=== PATIENT | female | born 1980 | race Caucasian/White ===

== ENCOUNTER 2016-06-28 10:57 | Inpatient (IN) | payer OTHER ==
[~2016-06-28 10:57] MED LIST: Albuterol/Ipratropium 3.0-0.5 MG/3 ML Neb Soln NEB PRN; Lactated Ringers 1,000 ML IV SCH; Lidocaine 1%/Sod Bicarbonate in NS 8.4% 1 ML Syringe IV PRN; Midazolam 1 MG/ML 2 ML SDV ONE; Morphine PF 10 MG/10 ML SDV ONE; Propofol 200 MG/20 ML SDV ONE; Sodium Chloride 0.9% 10 ML ONE; Sodium Chloride 0.9% 10 ML Syringe FLUSH PRN; ceFAZolin 1 GM Vial ONE; fentaNYL 100 MCG/2 ML SDV ONE
--- NOTE | 2016-06-28 11:27 | PCM.PREANE ---
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 Respiratory: Reports: shortness of breath (pt is current smoker, asthma, received duoneb preop) Cardiovascular: Reports: no symptoms, blood pressure problem GI: Reports: no symptoms (Gerd, well controlled) - PHYSICAL ASSESSMENT HR: 108 O2 Sat by Pulse Oximetry: 97 RR: 16 BP: 160/89 Temp: 36.2 C Height: 69 cm Weight: 143.018 kg NPO Status Date: 06/27/16 NPO Status Time: 21:30 ASA Class: 2 Mental Status: alert & oriented x3 Thyro-Mental Finger Breadths: 3 Mouth Opening Finger Breadths: 3 ROM/Head Extension: full Respiratory Status: lungs clear to auscultation bilaterally Cardiovascular Status: regular rate & rhythm, normal S1, S2, no murmur, blood pressure WNL - ALLERGIES Allergies/Adverse Reactions: Allergies Allergy/AdvReac Type Severity Reaction Status Date / Time No Known Allergies Allergy Verified 06/27/16 15:11 - BLOOD Blood Available: No Product(s) Available: None - ANESTHESIA PLAN Preop Beta Darcy: No Anesthesia Type Planned: spinal - ACKNOWLEDGEMENTS Pt an appropriate candidate for the planned anesthesia: Yes Alternatives and risks of anesthesia discussed w pt/guardian: Yes Pt/Guardian understands and agree with anesthesia plan: Yes PreAnesthesia Questionnaire HEENT History: Reports: Impaired vision Other HEENT History: wears glasses Cardiovascular History: Reports: Hypertension Respiratory History: Reports: Asthma, Other (see below) Other Respiratory History: Walking pneumonia Gastrointestinal History: Reports: Chronic constipation, GERD, Hemorrhoids Genitourinary History: Reports: None 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: , 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 Musculoskeletal History: Reports: None Neurological History: Reports: None, Headaches, chronic, Vertigo Psychiatric History: Reports: None Endocrine/Metabolic History: Reports: None, Obesity/BMI 30+ Hematologic History: Reports: None Immunologic History: Reports: None Oncologic (Cancer) History: Reports: None Dermatologic History: Reports: None - Past Surgical History Head Surgeries/Procedures: Reports: None HEENT Surgical History: Reports: Adenoidectomy Cardiovascular Surgical History: Reports: None Respiratory Surgical History: Reports: None GI Surgical History: Reports: None Female Surgical History: Reports: D&C Endocrine Surgical History: Reports: None Neurological Surgical History: Reports: None Musculoskeletal Surgical History: Reports: None - SUBSTANCE USE Smoking Status *Q: Light Tobacco Smoker Tobacco Use Within Last Twelve Months: Cigarettes Second Hand Smoke Exposure: Yes Recreational Drug Use History: No - HOME MEDS Home Medications: Home Meds Hydrochlorothiazide 25 mg PO DAILY 06/17/16 [History] Omeprazole 1 tab PO DAILY 06/17/16 [History] Acetaminophen/oxyCODONE [Percocet 325-5 MG] 1 - 2 tab PO Q4H PRN #50 tablet [Rx] Cyclobenzaprine [Flexeril] 10 mg PO TID PRN #40 tablet 06/21/16 [Rx] Docusate Sodium [Colace] 100 mg PO BID cap 06/21/16 [Rx] Albuterol Sulfate [Proair Hfa] 1 - 2 puff INH Q4H PRN 06/27/16 [History] Fluticasone/Vilanterol [Breo Ellipta 200-25 Mcg INH] 1 puff INH DAILY 06/27/16 [ History] - CURRENT (IN HOUSE) MEDS Current Meds: Current Medications Albuterol/Ipratropium (Duoneb 3.0-0.5 Mg/3 Ml) 3 ml NEB ONETIME PRN PRN Reason: Shortness of Breath Bisacodyl (Dulcolax) 5 mg PO DAILY PRN PRN Reason: Constipation Cyclobenzaprine HCl (Flexeril) 10 mg PO TID PRN PRN Reason: Spasms Diphenhydramine HCl (Benadryl) 25 mg IVPUSH Q4H PRN PRN Reason: Itching Docusate Sodium (Colace) 100 mg PO BID [facility]ICK[facility] Enoxaparin Sodium (Lovenox) 40 mg SUBCUT DAILY [facility] Famotidine (Pepcid) 20 mg PO Q12H [facility] Lactated Ringer's (Ringers, Lactated) 1,000 mls @ 125 mls/hr IV ASDIRECTED [facility]ICK[facility] Cefazolin Sodium/Dextrose 2 gm (/ Premix) 50 mls @ 100 mls/hr IV Q8H [facility] Stop: 06/28/16 23:14 Cefazolin Sodium/Dextrose 1 gm (/ Premix) 50 mls @ 100 mls/hr IV Q8HR [facility]ICK[facility] Stop: 06/29/16 06:29 Lidocaine/Sodium Bicarbonate (Buffered Lidocaine 1% In Ns 8.4%) 0.25 ml IV ONETIME PRN PRN Reason: Prior to IV Start Magnesium Hydroxide (Milk Of Magnesia) 30 ml PO BID PRN PRN Reason: Constipation Morphine Sulfate (Morphine) 2 mg IVPUSH Q2H PRN PRN Reason: Pain Naloxone HCl (Narcan) 0.1 mg IVPUSH Q5M PRN PRN Reason: oversedation Stop: 06/29/16 12:31 Ondansetron HCl (Zofran) 4 mg IVPUSH Q6H PRN PRN Reason: Nausea/Vomiting Oxycodone/Acetaminophen (Percocet 325-5 Mg) 1 - 2 tab PO Q4H PRN PRN Reason: Pain Senna (Senna) 8.6 mg PO BID PRN PRN Reason: Constipation Sodium Chloride (Saline Flush) 10 ml FLUSH ASDIRECTED PRN PRN Reason: Keep Vein Open Sodium Chloride (Saline Flush) 10 ml FLUSH ASDIRECTED PRN PRN Reason: Keep Vein Open Discontinued Medications Cefazolin Sodium (Ancef) Confirm Administered Dose 2 gm .ROUTE .STK-MED ONE Stop: 06/28/16 10:00 Fentanyl (Sublimaze) Confirm Administered Dose 100 mcg .ROUTE .STK-MED ONE Stop: 06/28/16 10:01 Sodium Chloride (Normal Saline) Confirm Administered Dose 10 mls @ as directed .ROUTE .STK-MED ONE Stop: 06/28/16 10:01 Midazolam HCl (Versed 1 Mg/Ml) Confirm Administered Dose 2 mg .ROUTE .STK-MED ONE Stop: 06/28/16 10:01 Morphine Sulfate (Duramorph Pf) Confirm Administered Dose 10 mg .ROUTE .STK-MED ONE Stop: 06/28/16 10:01 Propofol (Diprivan 20 Ml) Confirm Administered Dose 400 mg .ROUTE .STK-MED ONE Stop: 06/28/16 10:00
[2016-06-28] MEDS ORDERED: fentaNYL 100 MCG/2 ML SDV IVPUSH PRN (11:45)
[2016-06-28] MEDS ORDERED: Scopolamine 1.5 MG Transdermal Patch TRDERM ONE (11:45)
[2016-06-28] MEDS ORDERED: diphenhydrAMINE 50 MG/ML SDV IVPUSH PRN ×2 (11:45→13:00)
[2016-06-28] MEDS ORDERED: Ondansetron 4 MG/2 ML SDV IVPUSH PRN ×2 (11:45→14:00)
[2016-06-28] MEDS ORDERED: Propofol 200 MG/20 ML SDV ONE ×8 (11:56→14:44)
[2016-06-28] MEDS ORDERED: Pneumococcal Polyvalent-23 Vaccine 0.5 ML SDV IM ONE (12:27)
[2016-06-28] MEDS ORDERED: fentaNYL 100 MCG/2 ML SDV ONE (12:29)
[2016-06-28] MEDS ORDERED: Morphine 2 MG/ML Syringe IVPUSH PRN (12:30)
[2016-06-28] MEDS ORDERED: Naloxone 0.4 MG/ML SDV IVPUSH PRN (12:30)
[2016-06-28] MEDS ORDERED: Midazolam 1 MG/ML 2 ML SDV ONE (12:40)
[2016-06-28] MEDS ORDERED: Pneumococcal 13-Valent Conjugate Vaccine 0.5 ML Syringe IM ONE (12:45)
[2016-06-28] MEDS ORDERED: ceFAZolin 1 GM Vial ONE (12:50)
[2016-06-28] MEDS ORDERED: HYDROmorphone 0.5 MG/0.5 ML Syringe IVPUSH PRN (12:50)
[2016-06-28] MEDS ORDERED: Ketamine 500 mg/10 ML MDV ONE (13:02)
[2016-06-28] MEDS ORDERED: Albuterol 0.021% 0.63 MG/3 ML Neb Soln ONE (13:04)
[2016-06-28] MEDS: Bupivacaine 0.25% 30 ML SDV ONE ×2 (13:21→14:41)
[2016-06-28] MEDS ORDERED: Bupivacaine 0.25% 30 ML SDV ONE (14:16)
[2016-06-28] MEDS ORDERED: Ondansetron 4 MG/2 ML SDV ONE (14:39)
[2016-06-28] MEDS ORDERED: Lactated Ringers 1,000 ML ONE ×2 (14:55→14:56)
--- NOTE | 2016-06-28 15:14 | PCM.POSTAN ---
POST ANESTHESIA ASSESSMENT - MENTAL STATUS Mental Status: alert, oriented - VITAL SIGNS Pulse Rate: 105 SaO2: 96 Resp Rate: 19 Blood Pressure: 96/58 Temperature: 36.4 C - RESPIRATORY Respiratory Status: respiratory rate WNL, airway patent, O2 saturation stable - CARDIOVASCULAR CV Status: pulse rate WNL, blood pressure stable - GASTROINTESTINAL GI Status: no symptoms - PAIN Pain Score: 0 - POST OP HYDRATION Hydration Status: adequate & stable
[2016-06-28] MEDS ORDERED: Albuterol/Ipratropium 3.0-0.5 MG/3 ML Neb Soln NEB PRN (15:21)
[2016-06-28] MEDS ORDERED: Albuterol 6.7 GM Inhaler INH PRN (15:22)
[2016-06-28] MEDS: Cyclobenzaprine 10 MG Tab PO PRN (17:31)
[2016-06-28] MEDS: Acetaminophen/oxyCODONE 325-5 MG Tab PO PRN ×2 (18:04→22:04)
[2016-06-28] MEDS ORDERED: ceFAZolin 2 GM in Premix Bag 1 BAG IV SCH (19:30)
--- NOTE | 2016-06-28 19:55 | PCM.CONS ---
H&P History of Present Illness - General Date of Service: 06/28/16 Admit Problem/Dx: Admission Diagnosis/Problem Admission Diagnosis/Problem Fracture of tibia Source of Information: Patient, Old records, Provider, RN notes reviewed History Limitations: Reports: Physical impairment - History of Present Illness Initial Comments - Free Text/Narative: This is a 35-year-old, white female, with past medical history of HTN, Asthma, GERD, Nicotine Dependence, and Morbid Obesity who underwent recent ORIF on Right Medical and/or Lateral Tibial Plateau Fracture due to Displaced Bicondylar Fracture of Right Tibia post operative day zero. Patient is doing well hemodynamically. Currently, she is in extreme pain (crying). She denies any other acute issues. Medicine was consulted for postoperative care. - Related Data Allergies/Adverse Reactions: Allergies Allergy/AdvReac Type Severity Reaction Status Date / Time No Known Allergies Allergy Verified 06/27/16 15:11 Home Medications: Home Meds Hydrochlorothiazide 25 mg PO DAILY 06/17/16 [History] Omeprazole 1 tab PO DAILY 06/17/16 [History] Acetaminophen/oxyCODONE [Percocet 325-5 MG] 1 - 2 tab PO Q4H PRN #50 tablet [Rx] Cyclobenzaprine [Flexeril] 10 mg PO TID PRN #40 tablet 06/21/16 [Rx] Docusate Sodium [Colace] 100 mg PO BID cap 06/21/16 [Rx] Albuterol Sulfate [Proair Hfa] 1 - 2 puff INH Q4H PRN 06/27/16 [History] Fluticasone/Vilanterol [Breo Ellipta 200-25 Mcg INH] 1 puff INH DAILY 06/27/16 [ History] Past Medical History HEENT History: Reports: Impaired vision Other HEENT History: wears glasses Cardiovascular History: Reports: Hypertension Respiratory History: Reports: Asthma, Other (see below) Other Respiratory History: Walking pneumonia Gastrointestinal History: Reports: Chronic constipation, GERD, Hemorrhoids Genitourinary History: Reports: None 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: , 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 Musculoskeletal History: Reports: None Neurological History: Reports: None, Headaches, chronic, Vertigo Psychiatric History: Reports: None Endocrine/Metabolic History: Reports: None, Obesity/BMI 30+ Hematologic History: Reports: None Immunologic History: Reports: None Oncologic (Cancer) History: Reports: None Dermatologic History: Reports: None - Past Surgical History Head Surgeries/Procedures: Reports: None HEENT Surgical History: Reports: Adenoidectomy Cardiovascular Surgical History: Reports: None Respiratory Surgical History: Reports: None GI Surgical History: Reports: None Female Surgical History: Reports: D&C Endocrine Surgical History: Reports: None Neurological Surgical History: Reports: None Musculoskeletal Surgical History: Reports: None Social & Family History - Family History Family Medical History: Noncontributory - Tobacco Use Smoking Status *Q: Former Smoker Years of Tobacco use: 12 Packs/Tins Daily: 2 Used Tobacco, but Quit: Yes Month Tobacco Last Used: 2015 Second Hand Smoke Exposure: Yes - Caffeine Use Caffeine Use: Reports: Coffee, Soda - Recreational Drug Use Recreational Drug Use: No Drug Use in Last 12 Months: No H&P Review of Systems - Review of Systems: Review Of Systems: See Below General: Denies: fever, chills, malaise, weakness HEENT: Reports: no symptoms Pulmonary: Denies: shortness of breath Cardiovascular: Denies: chest pain, palpitations, dyspnea on exertion Gastrointestinal: Denies: Abdominal pain, Constipation, Diarrhea, Nausea, Vomiting Genitourinary: Reports: no symptoms Musculoskeletal: Reports: other (knee pain) Skin: Reports: no symptoms. Denies: bruising, pruritis, rash Psychiatric: Denies: depression, anxiety, hallucinations Neurological: Reports: difficulty walking, gait disturbance. Denies: confusion Hematologic/Lymphatic: Reports: no symptoms Immunologic: Reports: no symptoms Exam - Exam Exam: See Below - Vital Signs Vital Signs: Last Vital Signs Temp 36.6 C 06/28/16 18:00 Pulse 89 06/28/16 18:00 Resp 22 H 06/28/16 18:00 BP 133/82 06/28/16 18:00 Pulse Ox 99 06/28/16 18:00 Weight: 143.018 kg - Exam General: alert, oriented, cooperative, moderate distress, other (Morbidly Obese) HEENT: Conjunctiva clear, EACs clear, EOMI, Hearing intact, Mucosa moist & pink , Nares patent, Normal nasal septum, Posterior pharynx clear, Pupils equal, Pupils reactive, TMs clear Neck: supple, trachea midline, 2+ carotid pulse wo bruit, full range of motion, other (short and thick) Lungs: Clear to auscultation, Normal respiratory effort Cardiovascular: regular rate, regular rhythm Abdomen: normal bowel sounds, soft, organomegaly (Female) Exam: Other (indwelling roy catheter) Rectal (Female) Exam: Deferred Back Exam: normal inspection, decreased range of motion Extremities: normal inspection, normal pulses, other (right knee with brace/ immobilizer). No: clubbing, cyanosis, calf tenderness, edema Peripheral Pulses: 2+: dorsalis pedis (L), dorsalis pedis (R) Skin: warm, dry, intact Neuro Extensive - Mental Status: oriented x3, normal cognition, memory intact Neuro Extensive - Motor, Sensory, Reflexes: CN II-XII intact (limited by), abnormal gait Psychiatric: alert, normal affect, normal mood Consult PN Assessment/Plan POD#: 0 Procedures: Procedures APPLY BONE FIXATION DEVICE (06/20/16) CT LOWER EXTREMITY W/O DYE (06/20/16) EMERGENCY DEPT VISIT (06/17/16) FLUOROSCOPE EXAMINATION (06/20/16) MEASURE BLOOD OXYGEN LEVEL (06/20/16) MR-STAPH DNA AMP PROBE (06/19/16) PT EVAL LOW COMPLEX 20 MIN (06/20/16) THER/PROPH/DIAG INJ SC/IM (06/17/16) X-RAY EXAM KNEE 4 OR MORE (06/17/16) Problem List Initiated/Reviewed/Updated: Yes Plan: Assessment: Acute: Post-Operative Care State - Stable - Continue to monitor for hemodynamic instability S/p ORIF on Right Medical and/or Lateral Tibial Plateau Fracture - Stable - DVT and Pain Management as per primary team Hx/o Displaced Bicondylar Fracture of Right Tibia - Pain Management as per primary team Post Operative Pain - She is in extreme pain, crying - Defer to primary team Chronic: HTN Asthma GERD Obesity with BMI 46.6 Plan: She is clinically stable Routine AM labs Continue home meds PT/OT consult IS q2 awake Thank you for the opportunity to participate in the management of this patient. Requesting Provider: Dr. Nathan Date Consult Requested: 06/28/16 Reason for Consult: Post-Operative Care Patient History Reviewed: Yes Admission H&P Reviewed: Yes Consult Result/Summary: Stable
[2016-06-28] MEDS ORDERED: HYDROmorphone 0.5 MG/0.5 ML Syringe IVPUSH ONE (19:59)
[2016-06-28] MEDS ORDERED: fentaNYL 100 MCG/2 ML SDV IVPUSH ONE (20:00)
[2016-06-28] MEDS: Docusate Sodium 100 MG Cap PO SCH (20:11)
[2016-06-28] MEDS ORDERED: Temazepam 30 MG Cap PO PRN (20:38)
[2016-06-28] MEDS ORDERED: Docusate Sodium 100 MG Cap PO SCH (21:00)
[2016-06-28] MEDS ORDERED: Sennosides 8.6 MG Tab PO PRN (21:00)
[2016-06-28] MEDS ORDERED: Magnesium Hydroxide 400 MG/5 ML Susp 30 ML Cup PO PRN (21:00)
[2016-06-28] MEDS ORDERED: Famotidine 20 MG Tab PO SCH (21:00)
[2016-06-28] MEDS: ceFAZolin 1 GM in Premix Bag 1 BAG IV SCH (21:19)
[2016-06-29] MEDS: oxyCODONE 5 MG Tab PO PRN ×2 (00:08→08:23)
[2016-06-29] MEDS: ceFAZolin 1 GM in Premix Bag 1 BAG IV SCH ×3 (00:52→12:08)
[2016-06-29] MEDS: Acetaminophen/oxyCODONE 325-5 MG Tab PO PRN ×2 (02:04→06:09)
[2016-06-29] MEDS: Cyclobenzaprine 10 MG Tab PO PRN ×2 (02:57→08:25)
[2016-06-29] MEDS: ceFAZolin 2 GM in Premix Bag 1 BAG IV SCH ×2 (04:38→12:08)
[2016-06-29] MEDS ORDERED: fentaNYL 100 MCG/2 ML SDV IVPUSH ONE (04:48)
[2016-06-29] MEDS ORDERED: HYDROmorphone 0.5 MG/0.5 ML Syringe IVPUSH ONE (04:51)
--- NOTE | 2016-06-29 08:04 | PCM.CONSN ---
- General Info Date of Service: 06/29/16 Admission Dx/Problem (Free Text): Admission Diagnosis/Problem Admission Diagnosis/Problem Fracture of tibia Subjective Update: Follow up Functional Status: Reports: tolerating diet, ambulating, urinating. Denies: pain controlled, new symptoms - Review of Systems General: Denies: fever, weakness, fatigue, malaise, chills HEENT: Reports: no symptoms Pulmonary: Denies: shortness of breath, pleuritic chest pain, cough, wheezing Cardiovascular: Denies: chest pain Gastrointestinal: Denies: Abdominal pain, Nausea, Vomiting Genitourinary: Denies: no symptoms Musculoskeletal: Reports: no symptoms Skin: Reports: no symptoms Neurological: Reports: gait disturbance. Denies: confusion Psychiatric: Denies: depression, anxiety, hallucinations Systems Review Comment:: No acute issues. Her pain is much more controlled now. She has no new complaints. - Patient Data Vitals - most recent: Last Vital Signs Temp 36.9 C 06/29/16 05:12 Pulse 102 H 06/29/16 05:13 Resp 20 06/29/16 05:12 BP 146/82 H 06/29/16 05:12 Pulse Ox 92 L 06/29/16 05:13 Weight - most recent: 149.64 kg I&O - last 24 hours: Intake & Output 06/28/16 06/29/16 06/29/16 22:59 06:59 14:59 Intake Total 250 900 Output Total 420 1050 Balance -170 -150 Lab Results last 24 hrs: Laboratory Results - last 24 hr 06/29/16 06/29/16 Range/Units 05:45 05:45 WBC 8.62 (3.98-10.04) K/mm3 RBC 4.30 (3.98-5.22) M/mm3 Hgb 8.5 L (11.2-15.7) gm/L Hct 29.4 L (34.1-44.9) % MCV 68.4 L (79.4-94.8) fl MCH 19.8 L (25.6-32.2) pg MCHC 28.9 L (32.2-35.5) g/dl RDW Std Deviation 47.1 H (36.4-46.3) fL Plt Count 336 (182-369) K/mm3 MPV 9.7 (9.4-12.3) fl Sodium 138 (136-145) mEq/L Potassium 3.7 (3.5-5.1) mEq/L Chloride 101 (98-107) mEq/L Carbon Dioxide 28 (21-32) mEq/L Anion Gap 12.7 (5-15) BUN 7 (7-18) mg/dL Creatinine 0.8 (0.55-1.02) mg/dL Est Cr Clr Drug Dosing 104.53 mL/min Estimated GFR (MDRD) > 60 (>60) mL/min BUN/Creatinine Ratio 8.8 L (14-18) Glucose 122 H (74-106) mg/dL Calcium 8.3 L (8.5-10.1) mg/dL Med Orders - Current: Current Medications Albuterol (Proventil Hfa) 0 gm INH Q4H PRN PRN Reason: Shortness of Breath Albuterol/Ipratropium (Duoneb 3.0-0.5 Mg/3 Ml) 3 ml NEB Q4H PRN PRN Reason: Shortness of Breath Bisacodyl (Dulcolax) 5 mg PO DAILY PRN PRN Reason: Constipation Cyclobenzaprine HCl (Flexeril) 10 mg PO TID PRN PRN Reason: Spasms Last Admin: 06/29/16 02:57 Dose: 10 mg Docusate Sodium (Colace) 100 mg PO BID [facility] Last Admin: 06/28/16 20:11 Dose: 100 mg Enoxaparin Sodium (Lovenox) 30 mg SUBCUT Q12HR [facility] Hydrochlorothiazide (Hydrochlorothiazide) 25 mg PO DAILY [facility] Cefazolin Sodium/Dextrose 2 gm (/ Premix) 50 mls @ 100 mls/hr IV Q8H [facility] Stop: 06/29/16 12:59 Last Admin: 06/29/16 04:38 Dose: 100 mls/hr Cefazolin Sodium/Dextrose 1 gm (/ Premix) 50 mls @ 100 mls/hr IV Q8H [facility] Stop: 06/29/16 13:29 Last Admin: 06/29/16 05:26 Dose: 100 mls/hr Magnesium Hydroxide (Milk Of Magnesia) 30 ml PO BID PRN PRN Reason: Constipation Morphine Sulfate (Morphine) 2 mg IVPUSH Q2H PRN PRN Reason: Pain Naloxone HCl (Narcan) 0.1 mg IVPUSH Q5M PRN PRN Reason: oversedation Stop: 06/29/16 12:31 Ondansetron HCl (Zofran) 4 mg IVPUSH Q6H PRN PRN Reason: Nausea/Vomiting Oxycodone HCl (Oxycodone) 5 mg PO Q6H PRN PRN Reason: Pain Last Admin: 06/29/16 00:08 Dose: 5 mg Oxycodone/Acetaminophen (Percocet 325-5 Mg) 1 - 2 tab PO Q4H PRN PRN Reason: Pain Last Admin: 06/29/16 06:09 Dose: 2 tab Pantoprazole Sodium (Protonix) 40 mg PO DAILY RICKY Breo Ellipta ( Fluticasone/Vilanterol 100mcg/25 Mcg) Inhaler 0 each INH DAILY RICKY Senna (Senna) 8.6 mg PO BID PRN PRN Reason: Constipation Sodium Chloride (Saline Flush) 10 ml FLUSH ASDIRECTED PRN PRN Reason: Keep Vein Open Temazepam (Restoril) 30 mg PO BEDTIME PRN PRN Reason: Insomnia Discontinued Medications Albuterol (Proventil Neb Soln) Confirm Administered Dose 0.63 mg .ROUTE .STK- MED ONE Stop: 06/28/16 13:05 Last Admin: 06/28/16 17:13 Dose: Not Given Albuterol/Ipratropium (Duoneb 3.0-0.5 Mg/3 Ml) 3 ml NEB ONETIME PRN PRN Reason: Shortness of Breath Last Admin: 06/28/16 11:24 Dose: 3 ml Bupivacaine HCl (Marcaine 0.25%) Confirm Administered Dose 30 ml .ROUTE .STK- MED ONE Stop: 06/28/16 11:37 Last Admin: 06/28/16 14:41 Dose: 28 ml Bupivacaine HCl (Marcaine 0.25%) Confirm Administered Dose 30 ml .ROUTE .STK- MED ONE Stop: 06/28/16 14:17 Cefazolin Sodium (Ancef) Confirm Administered Dose 2 gm .ROUTE .STK-MED ONE Stop: 06/28/16 10:00 Cefazolin Sodium (Ancef) Confirm Administered Dose 1 gm .ROUTE .STK-MED ONE Stop: 06/28/16 12:51 Diphenhydramine HCl (Benadryl) 25 mg IVPUSH Q4H PRN PRN Reason: Itching Diphenhydramine HCl (Benadryl) 25 mg IVPUSH Q6H PRN PRN Reason: itching Stop: 06/28/16 20:00 Last Admin: 06/28/16 15:37 Dose: 25 mg Docusate Sodium (Colace) 100 mg PO BID [facility] Enoxaparin Sodium (Lovenox) 40 mg SUBCUT DAILY [facility] Famotidine (Pepcid) 20 mg PO Q12H [facility] Fentanyl (Sublimaze) Confirm Administered Dose 100 mcg .ROUTE .STK-MED ONE Stop: 06/28/16 10:01 Fentanyl (Sublimaze) 50 mcg IVPUSH Q5M PRN PRN Reason: pain Stop: 06/28/16 23:00 Fentanyl (Sublimaze) Confirm Administered Dose 100 mcg .ROUTE .STK-MED ONE Stop: 06/28/16 12:30 Fentanyl (Sublimaze) 100 mcg IVPUSH ONETIME ONE Stop: 06/28/16 20:01 Last Admin: 06/28/16 20:11 Dose: 100 mcg Fentanyl (Sublimaze) 100 mcg IVPUSH ONETIME ONE Stop: 06/29/16 04:49 Last Admin: 06/29/16 04:56 Dose: 100 mcg Hydromorphone HCl (Dilaudid) 0.5 mg IVPUSH Q15M PRN PRN Reason: Pain (severe 7-10) Stop: 06/28/16 13:06 Hydromorphone HCl (Dilaudid) 0.5 mg IVPUSH ONETIME ONE Stop: 06/28/16 20:00 Last Admin: 06/28/16 20:41 Dose: 0.5 mg Hydromorphone HCl (Dilaudid) 0.5 mg IVPUSH Q1H ONE Stop: 06/29/16 04:52 Last Admin: 06/29/16 05:26 Dose: 0.5 mg Lactated Ringer's (Ringers, Lactated) 1,000 mls @ 125 mls/hr IV ASDIRECTED [facility] Last Admin: 06/28/16 11:25 Dose: 125 mls/hr Cefazolin Sodium/Dextrose 2 gm (/ Premix) 50 mls @ 100 mls/hr IV Q8H [facility] Stop: 06/29/16 11:59 Last Admin: 06/28/16 20:42 Dose: 100 mls/hr Cefazolin Sodium/Dextrose 1 gm (/ Premix) 50 mls @ 100 mls/hr IV Q8HR [facility] Stop: 06/29/16 06:29 Last Admin: 06/29/16 00:52 Dose: Not Given Sodium Chloride (Normal Saline) Confirm Administered Dose 10 mls @ as directed .ROUTE .STK-MED ONE Stop: 06/28/16 10:01 Lactated Ringer's (Ringers, Lactated) Confirm Administered Dose 1,000 mls @ as directed .ROUTE .STK-MED ONE Stop: 06/28/16 14:56 Lactated Ringer's (Ringers, Lactated) Confirm Administered Dose 1,000 mls @ as directed .ROUTE .STK-MED ONE Stop: 06/28/16 14:57 Ketamine HCl (Ketalar) Confirm Administered Dose 500 mg .ROUTE .STK-MED ONE Stop: 06/28/16 13:03 Lidocaine/Sodium Bicarbonate (Buffered Lidocaine 1% In Ns 8.4%) 0.25 ml IV ONETIME PRN PRN Reason: Prior to IV Start Last Admin: 06/28/16 11:24 Dose: 0.25 ml Midazolam HCl (Versed 1 Mg/Ml) Confirm Administered Dose 2 mg .ROUTE .STK-MED ONE Stop: 06/28/16 10:01 Midazolam HCl (Versed 1 Mg/Ml) Confirm Administered Dose 2 mg .ROUTE .STK-MED ONE Stop: 06/28/16 12:41 Morphine Sulfate (Duramorph Pf) Confirm Administered Dose 10 mg .ROUTE .STK-MED ONE Stop: 06/28/16 10:01 Ondansetron HCl (Zofran) 4 mg IVPUSH ONETIME PRN PRN Reason: Nausea/Vomiting Stop: 06/28/16 23:00 Ondansetron HCl (Zofran) Confirm Administered Dose 4 mg .ROUTE .STK-MED ONE Stop: 06/28/16 14:40 Pneumococcal 13-Valent Conj Vacc (Prevnar 13) 0.5 ml IM .ONCE ONE Stop: 06/28/16 12:46 Pneumococcal Polyvalent Vaccine (Pneumovax 23) 0.5 ml IM .ONCE ONE Stop: 06/28/16 12:28 Propofol (Diprivan 20 Ml) Confirm Administered Dose 400 mg .ROUTE .STK-MED ONE Stop: 06/28/16 10:00 Propofol (Diprivan 20 Ml) Confirm Administered Dose 200 mg .ROUTE .STK-MED ONE Stop: 06/28/16 11:57 Propofol (Diprivan 20 Ml) Confirm Administered Dose 200 mg .ROUTE .STK-MED ONE Stop: 06/28/16 11:57 Propofol (Diprivan 20 Ml) Confirm Administered Dose 200 mg .ROUTE .STK-MED ONE Stop: 06/28/16 13:02 Propofol (Diprivan 20 Ml) Confirm Administered Dose 200 mg .ROUTE .STK-MED ONE Stop: 06/28/16 13:02 Propofol (Diprivan 20 Ml) Confirm Administered Dose 200 mg .ROUTE .STK-MED ONE Stop: 06/28/16 13:02 Propofol (Diprivan 20 Ml) Confirm Administered Dose 200 mg .ROUTE .STK-MED ONE Stop: 06/28/16 14:03 Propofol (Diprivan 20 Ml) Confirm Administered Dose 200 mg .ROUTE .STK-MED ONE Stop: 06/28/16 14:03 Propofol (Diprivan 20 Ml) Confirm Administered Dose 200 mg .ROUTE .STK-MED ONE Stop: 06/28/16 14:45 Scopolamine (Transderm-Scop) 1.5 mg TRDERM ONETIME ONE Stop: 06/28/16 11:46 Last Admin: 06/28/16 11:53 Dose: 1.5 mg Sodium Chloride (Saline Flush) 10 ml FLUSH ASDIRECTED PRN PRN Reason: Keep Vein Open - Exam General: alert, oriented, cooperative, no acute distress, other (Morbidly Obese) HEENT: Pupils equal, Pupils reactive, EOMI, Mucous membr. moist/pink Neck: supple, trachea midline, no JVD, no thyromegaly, +2 carotid pulse wo bruit , other (short and thick) Lungs: Clear to auscultation, Normal respiratory effort Cardiovascular: regular rate, regular rhythm Abdomen: bowel sounds present, soft, no tenderness, no distension (Female) Exam: Deferred Back Exam: normal inspection, decreased range of motion Extremities: no edema, normal pulses, no tenderness/swelling, no clubbing, no cyanosis, no calf tenderness Peripheral Pulses: 3+: dorsalis pedis (L), dorsalis pedis (R) Skin: warm, dry, intact Wound/Incisions: healing well, dressing dry and intact, no drainage Neurological: no new focal deficit Psy/Mental Status: alert, normal affect, normal mood Consult PN Assessment/Plan POD#: 1 Procedures: Procedures APPLY BONE FIXATION DEVICE (06/20/16) CHEST X-RAY 2VW FRONTAL&LATL (06/26/16) COMPLETE CBC AUTOMATED (06/26/16) COMPREHEN METABOLIC PANEL (06/26/16) CT LOWER EXTREMITY W/O DYE (06/20/16) EMERGENCY DEPT VISIT (06/17/16) FLUOROSCOPE EXAMINATION (06/20/16) MEASURE BLOOD OXYGEN LEVEL (06/20/16) MR-STAPH DNA AMP PROBE (06/19/16) PT EVAL LOW COMPLEX 20 MIN (06/20/16) ROUTINE VENIPUNCTURE (06/26/16) THER/PROPH/DIAG INJ SC/IM (06/17/16) X-RAY EXAM KNEE 4 OR MORE (06/17/16) Problem List Initiated/Reviewed/Updated: Yes My Orders last 24 hours: My Active Orders 06/28/16 20:38 Temazepam [Restoril] 30 mg PO BEDTIME PRN Plan: Assessment: Acute: Post-Operative Care State - Stable - Continue to monitor for hemodynamic instability S/p ORIF on Right Medical and/or Lateral Tibial Plateau Fracture - Stable - DVT and Pain Management as per primary team Hx/o Displaced Bicondylar Fracture of Right Tibia - Pain Management as per primary team S/p Post Operative Pain - Pain is now controlled - Defer to primary team Chronic: HTN Asthma GERD Obesity with BMI 46.6 Plan: She remains clinically stable Routine AM labs Continue PT/OT IS q2 awake We have no additional recommendations as this time but to continue current treatment
[2016-06-29] MEDS: Docusate Sodium 100 MG Cap PO SCH (08:25)
[2016-06-29] MEDS ORDERED: Hydrochlorothiazide 25 MG Tab PO SCH (09:00)
[2016-06-29] MEDS ORDERED: Bisacodyl 5 MG Tab PO PRN (09:00)
[2016-06-29] MEDS ORDERED: Enoxaparin 30 MG/0.3 ML Syringe SUBCUT SCH (09:00)
[2016-06-29] MEDS ORDERED: Enoxaparin 40 MG/0.4 ML Syringe SUBCUT SCH (09:00)
[2016-06-29] MEDS ORDERED: Pantoprazole 40 MG Tab.CR PO SCH (09:00)
[2016-06-29] MEDS ORDERED: BREO ELLIPTA INH SCH (09:00)
--- NOTE | 2016-06-29 10:03 | PCM.SURGPN ---
- General Info Date of Service: 06/29/16 POD#: 1 Functional Status: Reports: tolerating diet, ambulating - Review of Systems Musculoskeletal: Reports: other (The pt was able to ambulate a short distance in her room with P.T. Her pain is not controlled.) - Patient Data Vitals - most recent: Last Vital Signs Temp 97.0 F 06/29/16 09:47 Pulse 92 06/29/16 09:47 Resp 16 06/29/16 09:47 BP 148/74 H 06/29/16 09:47 Pulse Ox 91 L 06/29/16 09:47 Weight - most recent: 329 lb 14.4 oz I&O - last 24 hours: Intake & Output 06/28/16 06/29/16 06/29/16 22:59 06:59 14:59 Intake Total 250 900 Output Total 420 1050 Balance -170 -150 Lab Results last 24 hrs: Laboratory Results - last 24 hr 06/29/16 06/29/16 Range/Units 05:45 05:45 WBC 8.62 (3.98-10.04) K/mm3 RBC 4.30 (3.98-5.22) M/mm3 Hgb 8.5 L (11.2-15.7) gm/L Hct 29.4 L (34.1-44.9) % MCV 68.4 L (79.4-94.8) fl MCH 19.8 L (25.6-32.2) pg MCHC 28.9 L (32.2-35.5) g/dl RDW Std Deviation 47.1 H (36.4-46.3) fL Plt Count 336 (182-369) K/mm3 MPV 9.7 (9.4-12.3) fl Sodium 138 (136-145) mEq/L Potassium 3.7 (3.5-5.1) mEq/L Chloride 101 (98-107) mEq/L Carbon Dioxide 28 (21-32) mEq/L Anion Gap 12.7 (5-15) BUN 7 (7-18) mg/dL Creatinine 0.8 (0.55-1.02) mg/dL Est Cr Clr Drug Dosing 104.53 mL/min Estimated GFR (MDRD) > 60 (>60) mL/min BUN/Creatinine Ratio 8.8 L (14-18) Glucose 122 H (74-106) mg/dL Calcium 8.3 L (8.5-10.1) mg/dL Med Orders - Current: Current Medications Albuterol (Proventil Hfa) 0 gm INH Q4H PRN PRN Reason: Shortness of Breath Albuterol/Ipratropium (Duoneb 3.0-0.5 Mg/3 Ml) 3 ml NEB Q4H PRN PRN Reason: Shortness of Breath Bisacodyl (Dulcolax) 5 mg PO DAILY PRN PRN Reason: Constipation Cyclobenzaprine HCl (Flexeril) 10 mg PO TID PRN PRN Reason: Spasms Last Admin: 06/29/16 08:25 Dose: 10 mg Docusate Sodium (Colace) 100 mg PO BID [facility] Last Admin: 06/29/16 08:25 Dose: 100 mg Enoxaparin Sodium (Lovenox) 30 mg SUBCUT Q12HR [facility] Hydrochlorothiazide (Hydrochlorothiazide) 25 mg PO DAILY [facility] Last Admin: 06/29/16 08:25 Dose: 25 mg Hydromorphone HCl (Dilaudid) 2 mg PO Q4H PRN PRN Reason: Pain Cefazolin Sodium/Dextrose 2 gm (/ Premix) 50 mls @ 100 mls/hr IV Q8H [facility] Stop: 06/29/16 12:59 Last Admin: 06/29/16 04:38 Dose: 100 mls/hr Cefazolin Sodium/Dextrose 1 gm (/ Premix) 50 mls @ 100 mls/hr IV Q8H [facility] Stop: 06/29/16 13:29 Last Admin: 06/29/16 05:26 Dose: 100 mls/hr Magnesium Hydroxide (Milk Of Magnesia) 30 ml PO BID PRN PRN Reason: Constipation Naloxone HCl (Narcan) 0.1 mg IVPUSH Q5M PRN PRN Reason: oversedation Stop: 06/29/16 12:31 Ondansetron HCl (Zofran) 4 mg IVPUSH Q6H PRN PRN Reason: Nausea/Vomiting Pantoprazole Sodium (Protonix) 40 mg PO DAILY [facility] Last Admin: 06/29/16 08:25 Dose: 40 mg Breo Ellipta ( Fluticasone/Vilanterol 100mcg/25 Mcg) Inhaler 0 each INH DAILY [facility] Last Admin: 06/29/16 08:34 Dose: 1 each Senna (Senna) 8.6 mg PO BID PRN PRN Reason: Constipation Sodium Chloride (Saline Flush) 10 ml FLUSH ASDIRECTED PRN PRN Reason: Keep Vein Open Temazepam (Restoril) 30 mg PO BEDTIME PRN PRN Reason: Insomnia Discontinued Medications Albuterol (Proventil Neb Soln) Confirm Administered Dose 0.63 mg .ROUTE .STK- MED ONE Stop: 06/28/16 13:05 Last Admin: 06/28/16 17:13 Dose: Not Given Albuterol/Ipratropium (Duoneb 3.0-0.5 Mg/3 Ml) 3 ml NEB ONETIME PRN PRN Reason: Shortness of Breath Last Admin: 06/28/16 11:24 Dose: 3 ml Bupivacaine HCl (Marcaine 0.25%) Confirm Administered Dose 30 ml .ROUTE .STK- MED ONE Stop: 06/28/16 11:37 Last Admin: 06/28/16 14:41 Dose: 28 ml Bupivacaine HCl (Marcaine 0.25%) Confirm Administered Dose 30 ml .ROUTE .STK- MED ONE Stop: 06/28/16 14:17 Cefazolin Sodium (Ancef) Confirm Administered Dose 2 gm .ROUTE .STK-MED ONE Stop: 06/28/16 10:00 Cefazolin Sodium (Ancef) Confirm Administered Dose 1 gm .ROUTE .STK-MED ONE Stop: 06/28/16 12:51 Diphenhydramine HCl (Benadryl) 25 mg IVPUSH Q4H PRN PRN Reason: Itching Diphenhydramine HCl (Benadryl) 25 mg IVPUSH Q6H PRN PRN Reason: itching Stop: 06/28/16 20:00 Last Admin: 06/28/16 15:37 Dose: 25 mg Docusate Sodium (Colace) 100 mg PO BID [facility] Enoxaparin Sodium (Lovenox) 40 mg SUBCUT DAILY [facility] Famotidine (Pepcid) 20 mg PO Q12H [facility] Fentanyl (Sublimaze) Confirm Administered Dose 100 mcg .ROUTE .STK-MED ONE Stop: 06/28/16 10:01 Fentanyl (Sublimaze) 50 mcg IVPUSH Q5M PRN PRN Reason: pain Stop: 06/28/16 23:00 Fentanyl (Sublimaze) Confirm Administered Dose 100 mcg .ROUTE .STK-MED ONE Stop: 06/28/16 12:30 Fentanyl (Sublimaze) 100 mcg IVPUSH ONETIME ONE Stop: 06/28/16 20:01 Last Admin: 06/28/16 20:11 Dose: 100 mcg Fentanyl (Sublimaze) 100 mcg IVPUSH ONETIME ONE Stop: 06/29/16 04:49 Last Admin: 06/29/16 04:56 Dose: 100 mcg Hydromorphone HCl (Dilaudid) 0.5 mg IVPUSH Q15M PRN PRN Reason: Pain (severe 7-10) Stop: 06/28/16 13:06 Hydromorphone HCl (Dilaudid) 0.5 mg IVPUSH ONETIME ONE Stop: 06/28/16 20:00 Last Admin: 06/28/16 20:41 Dose: 0.5 mg Hydromorphone HCl (Dilaudid) 0.5 mg IVPUSH Q1H ONE Stop: 06/29/16 04:52 Last Admin: 06/29/16 05:26 Dose: 0.5 mg Lactated Ringer's (Ringers, Lactated) 1,000 mls @ 125 mls/hr IV ASDIRECTED [facility] Last Admin: 06/28/16 11:25 Dose: 125 mls/hr Cefazolin Sodium/Dextrose 2 gm (/ Premix) 50 mls @ 100 mls/hr IV Q8H [facility] Stop: 06/29/16 11:59 Last Admin: 06/28/16 20:42 Dose: 100 mls/hr Cefazolin Sodium/Dextrose 1 gm (/ Premix) 50 mls @ 100 mls/hr IV Q8HR [facility] Stop: 06/29/16 06:29 Last Admin: 06/29/16 00:52 Dose: Not Given Sodium Chloride (Normal Saline) Confirm Administered Dose 10 mls @ as directed .ROUTE .STK-MED ONE Stop: 06/28/16 10:01 Lactated Ringer's (Ringers, Lactated) Confirm Administered Dose 1,000 mls @ as directed .ROUTE .STK-MED ONE Stop: 06/28/16 14:56 Lactated Ringer's (Ringers, Lactated) Confirm Administered Dose 1,000 mls @ as directed .ROUTE .STK-MED ONE Stop: 06/28/16 14:57 Ketamine HCl (Ketalar) Confirm Administered Dose 500 mg .ROUTE .STK-MED ONE Stop: 06/28/16 13:03 Lidocaine/Sodium Bicarbonate (Buffered Lidocaine 1% In Ns 8.4%) 0.25 ml IV ONETIME PRN PRN Reason: Prior to IV Start Last Admin: 06/28/16 11:24 Dose: 0.25 ml Midazolam HCl (Versed 1 Mg/Ml) Confirm Administered Dose 2 mg .ROUTE .STK-MED ONE Stop: 06/28/16 10:01 Midazolam HCl (Versed 1 Mg/Ml) Confirm Administered Dose 2 mg .ROUTE .STK-MED ONE Stop: 06/28/16 12:41 Morphine Sulfate (Morphine) 2 mg IVPUSH Q2H PRN PRN Reason: Pain Last Admin: 06/29/16 08:59 Dose: 2 mg Morphine Sulfate (Duramorph Pf) Confirm Administered Dose 10 mg .ROUTE .STK-MED ONE Stop: 06/28/16 10:01 Ondansetron HCl (Zofran) 4 mg IVPUSH ONETIME PRN PRN Reason: Nausea/Vomiting Stop: 06/28/16 23:00 Ondansetron HCl (Zofran) Confirm Administered Dose 4 mg .ROUTE .STK-MED ONE Stop: 06/28/16 14:40 Oxycodone HCl (Oxycodone) 5 mg PO Q6H PRN PRN Reason: Pain Last Admin: 06/29/16 08:23 Dose: 5 mg Oxycodone/Acetaminophen (Percocet 325-5 Mg) 1 - 2 tab PO Q4H PRN PRN Reason: Pain Last Admin: 06/29/16 06:09 Dose: 2 tab Pneumococcal 13-Valent Conj Vacc (Prevnar 13) 0.5 ml IM .ONCE ONE Stop: 06/28/16 12:46 Pneumococcal Polyvalent Vaccine (Pneumovax 23) 0.5 ml IM .ONCE ONE Stop: 06/28/16 12:28 Propofol (Diprivan 20 Ml) Confirm Administered Dose 400 mg .ROUTE .STK-MED ONE Stop: 06/28/16 10:00 Propofol (Diprivan 20 Ml) Confirm Administered Dose 200 mg .ROUTE .STK-MED ONE Stop: 06/28/16 11:57 Propofol (Diprivan 20 Ml) Confirm Administered Dose 200 mg .ROUTE .STK-MED ONE Stop: 06/28/16 11:57 Propofol (Diprivan 20 Ml) Confirm Administered Dose 200 mg .ROUTE .STK-MED ONE Stop: 06/28/16 13:02 Propofol (Diprivan 20 Ml) Confirm Administered Dose 200 mg .ROUTE .STK-MED ONE Stop: 06/28/16 13:02 Propofol (Diprivan 20 Ml) Confirm Administered Dose 200 mg .ROUTE .STK-MED ONE Stop: 06/28/16 13:02 Propofol (Diprivan 20 Ml) Confirm Administered Dose 200 mg .ROUTE .STK-MED ONE Stop: 06/28/16 14:03 Propofol (Diprivan 20 Ml) Confirm Administered Dose 200 mg .ROUTE .STK-MED ONE Stop: 06/28/16 14:03 Propofol (Diprivan 20 Ml) Confirm Administered Dose 200 mg .ROUTE .STK-MED ONE Stop: 06/28/16 14:45 Scopolamine (Transderm-Scop) 1.5 mg TRDERM ONETIME ONE Stop: 06/28/16 11:46 Last Admin: 06/28/16 11:53 Dose: 1.5 mg Sodium Chloride (Saline Flush) 10 ml FLUSH ASDIRECTED PRN PRN Reason: Keep Vein Open - Exam Wound/Incisions: dressing dry and intact General: alert, cooperative, no acute distress Lungs: Normal respiratory effort Extremities: normal pulses, other (NVS intact for RLE. ) - Problem List Review Problem List Initiated/Reviewed/Updated: Yes - My Orders Last 24 Hours: Active Orders 24 hr Category Date Time Status Cooling Warming Measures [RC] ASDIRECTED Care 06/28/16 11:45 Inactive Notify Provider [RC] ASDIRECTED Care 06/28/16 11:45 Inactive Pulse Oximetry [RC] ASDIRECTED Care 06/28/16 11:45 Active RT Aerosol Therapy [RC] .PRN Care 06/28/16 15:22 Active Vital Signs [RC] Q1H Care 06/28/16 11:45 Inactive Regular Diet [DIET] Diet 06/28/16 Dinner Active Fluoro Up To 1Hr [CR] Routine Exams 06/28/16 11:12 Taken CBC W/O DIFF,HEMOGRAM [HEME] MOTH@0700 Lab 07/01/16 07:00 Ordered CBC W/O DIFF,HEMOGRAM [HEME] MOTH@0700 Lab 07/04/16 07:00 Ordered CBC W/O DIFF,HEMOGRAM [HEME] MOTH@0700 Lab 07/08/16 07:00 Ordered CBC W/O DIFF,HEMOGRAM [HEME] MOTH@0700 Lab 07/11/16 07:00 Ordered CBC W/O DIFF,HEMOGRAM [HEME] MOTH@0700 Lab 07/15/16 07:00 Ordered CBC W/O DIFF,HEMOGRAM [HEME] MOTH@0700 Lab 07/18/16 07:00 Ordered Albuterol [Proventil HFA] Med 06/28/16 15:22 Active 0 gm INH Q4H PRN Albuterol/Ipratropium [DuoNeb 3.0-0.5 MG/3 ML] Med 06/28/16 15:21 Active 3 ml NEB Q4H PRN Bisacodyl [Dulcolax] Med 06/29/16 09:00 Active 5 mg PO DAILY PRN Cyclobenzaprine [Flexeril] Med 06/28/16 15:00 Active 10 mg PO TID PRN Docusate Sodium [Colace] Med 06/28/16 21:00 Active 100 mg PO BID Enoxaparin [Lovenox] Med 06/29/16 09:00 Active 30 mg SUBCUT Q12HR HYDROmorphone [Dilaudid] Med 06/29/16 09:56 Ordered 2 mg PO Q4H PRN Hydrochlorothiazide Med 06/29/16 09:00 Active 25 mg PO DAILY Magnesium Hydroxide [Milk of Magnesia] Med 06/28/16 21:00 Active 30 ml PO BID PRN Naloxone [Narcan] Med 06/28/16 12:30 Active 0.1 mg IVPUSH Q5M PRN Ondansetron [Zofran] Med 06/28/16 14:00 Active 4 mg IVPUSH Q6H PRN Pantoprazole [Protonix] Med 06/29/16 09:00 Active 40 mg PO DAILY Patient's Own Medication [Ptom] Med 06/29/16 09:00 Active 0 each INH DAILY Sennosides [Senna] Med 06/28/16 21:00 Active 8.6 mg PO BID PRN Temazepam [Restoril] Med 06/28/16 20:38 Active 30 mg PO BEDTIME PRN ceFAZolin [Ancef] 1 gm Med 06/29/16 05:00 Active Premix Bag 1 bag IV Q8H ceFAZolin [Ancef] 2 gm Med 06/29/16 04:30 Active Premix Bag 1 bag IV Q8H Medication Orders Albuterol (Proventil Hfa) 0 gm INH Q4H PRN PRN Reason: Shortness of Breath Albuterol/Ipratropium (Duoneb 3.0-0.5 Mg/3 Ml) 3 ml NEB Q4H PRN PRN Reason: Shortness of Breath Bisacodyl (Dulcolax) 5 mg PO DAILY PRN PRN Reason: Constipation Cyclobenzaprine HCl (Flexeril) 10 mg PO TID PRN PRN Reason: Spasms Last Admin: 06/29/16 08:25 Dose: 10 mg Admin: 06/29/16 02:57 Dose: 10 mg Admin: 06/28/16 17:31 Dose: 10 mg Docusate Sodium (Colace) 100 mg PO BID [facility] Last Admin: 06/29/16 08:25 Dose: 100 mg Admin: 06/28/16 20:11 Dose: 100 mg Enoxaparin Sodium (Lovenox) 30 mg SUBCUT Q12HR [facility] Hydrochlorothiazide (Hydrochlorothiazide) 25 mg PO DAILY [facility] Last Admin: 06/29/16 08:25 Dose: 25 mg Hydromorphone HCl (Dilaudid) 2 mg PO Q4H PRN PRN Reason: Pain Cefazolin Sodium/Dextrose 2 gm (/ Premix) 50 mls @ 100 mls/hr IV Q8H [facility] Stop: 06/29/16 12:59 Last Admin: 06/29/16 04:38 Dose: 100 mls/hr Cefazolin Sodium/Dextrose 1 gm (/ Premix) 50 mls @ 100 mls/hr IV Q8H [facility] Stop: 06/29/16 13:29 Last Admin: 06/29/16 05:26 Dose: 100 mls/hr Magnesium Hydroxide (Milk Of Magnesia) 30 ml PO BID PRN PRN Reason: Constipation Naloxone HCl (Narcan) 0.1 mg IVPUSH Q5M PRN PRN Reason: oversedation Stop: 06/29/16 12:31 Ondansetron HCl (Zofran) 4 mg IVPUSH Q6H PRN PRN Reason: Nausea/Vomiting Pantoprazole Sodium (Protonix) 40 mg PO DAILY [facility] Last Admin: 06/29/16 08:25 Dose: 40 mg Breo Ellipta ( Fluticasone/Vilanterol 100mcg/25 Mcg) Inhaler 0 each INH DAILY [facility] Last Admin: 06/29/16 08:34 Dose: 1 each Senna (Senna) 8.6 mg PO BID PRN PRN Reason: Constipation Sodium Chloride (Saline Flush) 10 ml FLUSH ASDIRECTED PRN PRN Reason: Keep Vein Open Temazepam (Restoril) 30 mg PO BEDTIME PRN PRN Reason: Insomnia - Assessment Assessment (Free Text/Narrative):: POD#1 - removal of external fixator and ORIF of bicondylar tibial plateau fx - Plan Plan (Free Text/Narrative):: 1. Lovenox BID for VTE prophylaxis. SCD. 2. Case discussed with Dr. Ricci and respiratory status stable. 3. Will d/c Percocet and oxycodone and initiate PO Dilaudid as pt's pain has not been controlled. 4. Continue with P.T. The pt will attempt ambulation again this afternoon. 5. Discharge today if pain controlled and P.T. goals met. Possible d/c tomorrow. The pt's case was discussed with Dr. Nathan.
[2016-06-29] MEDS: HYDROmorphone 2 MG Tab PO PRN ×2 (10:49→17:57)
[2016-06-29] MEDS ORDERED: LORazepam 1 MG Tab PO ONE (12:44)
[2016-06-29] MEDS ORDERED: HYDROmorphone 2 MG Tab PO ONE (14:19)
[2016-06-29 17:44] VITALS: BP 155/86
--- NOTE | 2016-07-01 09:33 | CR ---
Right knee: Multiple fluoroscopic spot views of the right knee were obtained utilizing C-arm device. Study performed in the operating suite. Study shows placement of plate and screws across previous tibial fracture. Fracture appears very close to anatomic in alignment on current study. Skin paul are present on the final film. Fluoroscopy time is given as 136.5 seconds. Impression: 1. Fixation of previous tibial fracture. Diagnostic code #2
--- NOTE | 2016-07-02 13:43 | PCM.OPNOTE ---
- General Post-Op/Procedure Note Date of Surgery/Procedure: 06/28/16 Operative Procedure(s): open reduction internal fixation of right bicondylar tibial plateau fracture with removal of external fixator Pre Op Diagnosis: right bicondylar tibial plateau fracture Post-Op Diagnosis: Same Anesthesia Technique: General ET tube, Local Primary Surgeon: Nadir Nathan Anesthesia Provider: Rosa Ball Hr Shared Services Consultant: Mireya Don EBL in mLs: 50 Complications: None Condition: Good
--- NOTE | 2016-07-02 14:55 | OR ---
DATE OF OPERATION: 06/28/2016 SURGEON: Nadir Nathan MD OPERATION PERFORMED: Open reduction and internal fixation, right bicondylar tibial plateau fracture, with removal of external fixator. PREOPERATIVE DIAGNOSIS: Right bicondylar tibial plateau fracture. POSTOPERATIVE DIAGNOSIS: Right bicondylar tibial plateau fracture. ANESTHESIA: General endotracheal intubation with local. ANESTHESIA PROVIDER: Rosa Ball CRNA. TURBINE TECHNICIAN: Mireya Don PA-C. ESTIMATED BLOOD LOSS: 50 mL. COMPLICATIONS: None. CONDITION: Stable. DESCRIPTION OF PROCEDURE: The patient was identified in the preop holding area, proper site was marked by the surgeon. The patient was taken back to the operating theater where after adequate anesthesia, the patient's right lower extremity was sterilely prepped and draped in the usual sterile fashion with the external fixator in place. OR- wide time-out was performed. The patient received 2 grams of IV Ancef. At this time, the right lower extremity was elevated and tourniquet was insufflated to 300 mmHg. A small poke-hole incision was made medially and picador was placed making sure that we would be able to get reduction of the medial plateau without large medial incision. At this time, it was found to reduced with traction and reduction with pushing the picador. At this time, a hockey-stick incision was made laterally, and this was taken down to the IT band. The IT band was incised along with the anterior and lateral compartment musculature all the way down to the fibular head. Arthrotomy was then created and hematoma was evacuated from the knee. Meniscus showed no signs of trauma. At this time, the lateral side showed good reduction with external fixator, which was left in place. At this time, a 4-hole [place] proximal tibial lateral locking plate was placed and a large [id number] periarticular reduction clamp was placed and reduction of the medial plateau was then performed. K-wires were then used for provisional reduction. Distally, the plate was found to be in adequate position on both AP and lateral views. It was then fixed to the bone with 3.5 cortical screw in the shaft. Next, approximately 4 locking screws were placed all the way bicortically across medially. Kickstand screw was then placed and then a compression nonlocking kickstand screw was placed to catch the anterior medial fragment. At this time, the rest of the cortical screws were placed bicortically in the shaft. It was found to have adequate fixation at this time. It was found to have a near anatomic reduction in both AP and lateral views of both the medial and lateral tibial plateaus. Adequate saline was then irrigated through the wound. The IT band and fascia were closed. 2 Vicryl was used subcutaneously and paul were used for the skin. Aquacel dressing was then applied. At this time, the external fixator was then removed. The previous pin holes were curetted out and then irrigated with saline and left open. Sterile soft dressing was applied. The patient tolerated the procedure well and was placed in a hinged knee brace. JUD /[id number] WALT
--- NOTE | 2016-07-03 09:06 | PCM.DCSUM1 ---
Discharge Summary - Hospital Course Brief History: Bettie is a 35 yo female who was dx with right bicondylar tibial plateau fx after a fall on the ice on 06-17-2016. She had external fixator placed on 06-20-[address] Nathan. The pt underwent removal of external fixator and ORIF of right bicondylar tibial plateau fracture on 06-28-[address] Nathan. The procedure was completed under spinal anesthesia with MAC. The pt tolerated the procedure well and was admitted to the Medical-Surgical Unit for pain control and monitoring of respiratory status as the pt has hx asthma. Medical management was provided by the [facility] service and the pt did well from the respiratory standpoint. The pt participated in P.T. and was NWB through the [facility]. A hinged knee brace was in place at [facility] also also. On POD#1, the pt was started on Lovenox BID for VTE prophylaxis. The pt received 3 doses of IV Ancef post-operatively. Her pain was controlled and she met in-patient therapy goals and was deemed appropriate for discharge to home with her family on 06-29-2016. - Discharge Data Discharge Date: 06/29/16 Discharge Disposition: Home, Self-Care 01 Condition: Good - Patient Summary/Data Operative Procedure(s) Performed: open reduction internal fixation of right bicondylar tibial plateau fracture with removal of external fixator Consults: Consultations 06/28/16 06:32 Consult to Physician [CONS] Routine OT Evaluation and Treatment [CONS] Routine PT Evaluation and Treatment [CONS] Routine - Patient Instructions Diet: Usual Diet as Tolerated Activity: Apply Ice, As Tolerated, Elevate Extremity, Non Weight Bearing Driving: Do Not Drive Showering/Bathing: May Shower Wound/Incision Care: Keep Operative Site/Wound Site Clean and Dry, Do NOT Change Dressing Notify Provider of: Fever, Increased Pain, Swelling and Redness, Drainage, Nausea and/or Vomiting Other/Special Instructions: Please get up and moving around every hour while awake. Have help with walking as needed and use your walker. Frequent walks helps to prevent blood clots. Please take the blood thinner medication twice daily - Lovenox shots. Elevate the limb to decrease swelling. Use the ice machine often. Do not place weight through your right leg and please keep the brace in place at all times. Schedule an appointment with your primary care provider for routine post-operative care and to follow-up on your lungs/ asthma and hemoglobin level. Use the pain medication as needed. The medication may cause drowsiness and/or constipation. You could use a stool softener like docusate sodium or Colace 100mg twice daily and/or a laxative like Miralax daily. Contact your primary care provider for other instructions if you are constipated. Please call the Clinic with questions or concerns [phone]. YOUR PAIN MEDICATION PRESCRIPTION is for 2mg tablets of Dilaudid or hydromorphone. If your pain is not controlled with the use of 2mg every 4 hours , you could take an extra half of a pill every 4 hours if needed (for a total of 3mg every 4 hours). Please do not take other pain medications while using the Dilaudid and do not use alcohol with any pain medication use. - Discharge Plan Prescriptions/Med Rec: Enoxaparin [Lovenox] 30 mg SUBCUT Q12HR #30 syringe HYDROmorphone [Dilaudid] 2 mg PO Q4H PRN #30 tablet PRN Reason: Pain Home Medications: Home Meds Hydrochlorothiazide 25 mg PO DAILY 06/17/16 [History] Omeprazole 1 tab PO DAILY 06/17/16 [History] Cyclobenzaprine [Flexeril] 10 mg PO TID PRN #40 tablet 06/21/16 [Rx] Docusate Sodium [Colace] 100 mg PO BID cap 06/21/16 [Rx] Albuterol Sulfate [Proair Hfa] 1 - 2 puff INH Q4H PRN 06/27/16 [History] Fluticasone/Vilanterol [Breo Ellipta 200-25 Mcg INH] 1 puff INH DAILY 06/27/16 [ History] Bisacodyl [Dulcolax] 5 mg PO DAILY PRN #0 tablet 06/29/16 [Rx] Enoxaparin [Lovenox] 30 mg SUBCUT Q12HR #30 syringe 06/29/16 [Rx] HYDROmorphone [Dilaudid] 2 mg PO Q4H PRN #30 tablet 06/29/16 [Rx] Magnesium Hydroxide [Milk of Magnesia] 30 ml PO BID PRN #0 cup 06/29/16 [Rx] Sennosides [Senna] 8.6 mg PO BID PRN #0 tablet 06/29/16 [Rx] Patient Handouts: Tibial and Fibular Fracture, Adult Referrals: Kim Garcia PA [Physician Clinician Oncology] - Mireya Don PA-C [Physician Clinician Oncology] - - Patient Data Vitals - Most Recent: Last Vital Signs Temp 99.0 F 06/29/16 17:40 Pulse 135 H 06/29/16 17:42 Resp 16 06/29/16 17:40 BP 155/86 H 06/29/16 17:42 Pulse Ox 90 L 06/29/16 17:42 Weight - Most Recent: 329 lb 14.4 oz Med Orders - Current: Current Medications Discontinued Medications Albuterol (Proventil Neb Soln) Confirm Administered Dose 0.63 mg .ROUTE .STK- MED ONE Stop: 06/28/16 13:05 Last Admin: 06/28/16 17:13 Dose: Not Given Albuterol (Proventil Hfa) 0 gm INH Q4H PRN PRN Reason: Shortness of Breath Albuterol/Ipratropium (Duoneb 3.0-0.5 Mg/3 Ml) 3 ml NEB ONETIME PRN PRN Reason: Shortness of Breath Last Admin: 06/28/16 11:24 Dose: 3 ml Albuterol/Ipratropium (Duoneb 3.0-0.5 Mg/3 Ml) 3 ml NEB Q4H PRN PRN Reason: Shortness of Breath Bisacodyl (Dulcolax) 5 mg PO DAILY PRN PRN Reason: Constipation Bupivacaine HCl (Marcaine 0.25%) Confirm Administered Dose 30 ml .ROUTE .STK- MED ONE Stop: 06/28/16 11:37 Last Admin: 06/28/16 14:41 Dose: 28 ml Bupivacaine HCl (Marcaine 0.25%) Confirm Administered Dose 30 ml .ROUTE .STK- MED ONE Stop: 06/28/16 14:17 Cefazolin Sodium (Ancef) Confirm Administered Dose 2 gm .ROUTE .STK-MED ONE Stop: 06/28/16 10:00 Cefazolin Sodium (Ancef) Confirm Administered Dose 1 gm .ROUTE .STK-MED ONE Stop: 06/28/16 12:51 Cyclobenzaprine HCl (Flexeril) 10 mg PO TID PRN PRN Reason: Spasms Last Admin: 06/29/16 08:25 Dose: 10 mg Diphenhydramine HCl (Benadryl) 25 mg IVPUSH Q4H PRN PRN Reason: Itching Diphenhydramine HCl (Benadryl) 25 mg IVPUSH Q6H PRN PRN Reason: itching Stop: 06/28/16 20:00 Last Admin: 06/28/16 15:37 Dose: 25 mg Docusate Sodium (Colace) 100 mg PO BID [facility] Last Admin: 06/29/16 08:25 Dose: 100 mg Docusate Sodium (Colace) 100 mg PO BID [facility] Enoxaparin Sodium (Lovenox) 40 mg SUBCUT DAILY [facility] Enoxaparin Sodium (Lovenox) 30 mg SUBCUT Q12HR [facility] Last Admin: 06/29/16 08:51 Dose: 30 mg Famotidine (Pepcid) 20 mg PO Q12H [facility] Fentanyl (Sublimaze) Confirm Administered Dose 100 mcg .ROUTE .STK-MED ONE Stop: 06/28/16 10:01 Fentanyl (Sublimaze) 50 mcg IVPUSH Q5M PRN PRN Reason: pain Stop: 06/28/16 23:00 Fentanyl (Sublimaze) Confirm Administered Dose 100 mcg .ROUTE .STK-MED ONE Stop: 06/28/16 12:30 Fentanyl (Sublimaze) 100 mcg IVPUSH ONETIME ONE Stop: 06/28/16 20:01 Last Admin: 06/28/16 20:11 Dose: 100 mcg Fentanyl (Sublimaze) 100 mcg IVPUSH ONETIME ONE Stop: 06/29/16 04:49 Last Admin: 06/29/16 04:56 Dose: 100 mcg Hydrochlorothiazide (Hydrochlorothiazide) 25 mg PO DAILY [facility] Last Admin: 06/29/16 08:25 Dose: 25 mg Hydromorphone HCl (Dilaudid) 0.5 mg IVPUSH Q15M PRN PRN Reason: Pain (severe 7-10) Stop: 06/28/16 13:06 Hydromorphone HCl (Dilaudid) 0.5 mg IVPUSH ONETIME ONE Stop: 06/28/16 20:00 Last Admin: 06/28/16 20:41 Dose: 0.5 mg Hydromorphone HCl (Dilaudid) 0.5 mg IVPUSH Q1H ONE Stop: 06/29/16 04:52 Last Admin: 06/29/16 05:26 Dose: 0.5 mg Hydromorphone HCl (Dilaudid) 2 mg PO Q4H PRN PRN Reason: Pain Last Admin: 06/29/16 17:57 Dose: 2 mg Hydromorphone HCl (Dilaudid) 4 mg PO STAT ONE Stop: 06/29/16 14:20 Last Admin: 06/29/16 14:27 Dose: 4 mg Lactated Ringer's (Ringers, Lactated) 1,000 mls @ 125 mls/hr IV ASDIRECTED [facility] Last Admin: 06/28/16 11:25 Dose: 125 mls/hr Cefazolin Sodium/Dextrose 2 gm (/ Premix) 50 mls @ 100 mls/hr IV Q8H [facility] Stop: 06/29/16 11:59 Last Admin: 06/28/16 20:42 Dose: 100 mls/hr Cefazolin Sodium/Dextrose 1 gm (/ Premix) 50 mls @ 100 mls/hr IV Q8HR [facility] Stop: 06/29/16 06:29 Last Admin: 06/29/16 00:52 Dose: Not Given Sodium Chloride (Normal Saline) Confirm Administered Dose 10 mls @ as directed .ROUTE .STK-MED ONE Stop: 06/28/16 10:01 Lactated Ringer's (Ringers, Lactated) Confirm Administered Dose 1,000 mls @ as directed .ROUTE .STK-MED ONE Stop: 06/28/16 14:56 Lactated Ringer's (Ringers, Lactated) Confirm Administered Dose 1,000 mls @ as directed .ROUTE .STK-MED ONE Stop: 06/28/16 14:57 Cefazolin Sodium/Dextrose 2 gm (/ Premix) 50 mls @ 100 mls/hr IV Q8H [facility] Stop: 06/29/16 12:59 Last Admin: 06/29/16 12:08 Dose: 100 mls/hr Cefazolin Sodium/Dextrose 1 gm (/ Premix) 50 mls @ 100 mls/hr IV Q8H [facility] Stop: 06/29/16 13:29 Last Admin: 06/29/16 12:08 Dose: 100 mls/hr Ketamine HCl (Ketalar) Confirm Administered Dose 500 mg .ROUTE .STK-MED ONE Stop: 06/28/16 13:03 Lidocaine/Sodium Bicarbonate (Buffered Lidocaine 1% In Ns 8.4%) 0.25 ml IV ONETIME PRN PRN Reason: Prior to IV Start Last Admin: 06/28/16 11:24 Dose: 0.25 ml Lorazepam (Ativan) 1 mg PO ONETIME ONE Stop: 06/29/16 12:45 Last Admin: 06/29/16 12:52 Dose: 1 mg Magnesium Hydroxide (Milk Of Magnesia) 30 ml PO BID PRN PRN Reason: Constipation Midazolam HCl (Versed 1 Mg/Ml) Confirm Administered Dose 2 mg .ROUTE .STK-MED ONE Stop: 06/28/16 10:01 Midazolam HCl (Versed 1 Mg/Ml) Confirm Administered Dose 2 mg .ROUTE .STK-MED ONE Stop: 06/28/16 12:41 Morphine Sulfate (Morphine) 2 mg IVPUSH Q2H PRN PRN Reason: Pain Last Admin: 06/29/16 08:59 Dose: 2 mg Morphine Sulfate (Duramorph Pf) Confirm Administered Dose 10 mg .ROUTE .STK-MED ONE Stop: 06/28/16 10:01 Naloxone HCl (Narcan) 0.1 mg IVPUSH Q5M PRN PRN Reason: oversedation Stop: 06/29/16 12:31 Ondansetron HCl (Zofran) 4 mg IVPUSH Q6H PRN PRN Reason: Nausea/Vomiting Ondansetron HCl (Zofran) 4 mg IVPUSH ONETIME PRN PRN Reason: Nausea/Vomiting Stop: 06/28/16 23:00 Ondansetron HCl (Zofran) Confirm Administered Dose 4 mg .ROUTE .STK-MED ONE Stop: 06/28/16 14:40 Oxycodone HCl (Oxycodone) 5 mg PO Q6H PRN PRN Reason: Pain Last Admin: 06/29/16 08:23 Dose: 5 mg Oxycodone/Acetaminophen (Percocet 325-5 Mg) 1 - 2 tab PO Q4H PRN PRN Reason: Pain Last Admin: 06/29/16 06:09 Dose: 2 tab Pantoprazole Sodium (Protonix) 40 mg PO DAILY [facility] Last Admin: 06/29/16 08:25 Dose: 40 mg Breo Ellipta ( Fluticasone/Vilanterol 100mcg/25 Mcg) Inhaler 0 each INH DAILY [facility] Last Admin: 06/29/16 08:34 Dose: 1 each Pneumococcal 13-Valent Conj Vacc (Prevnar 13) 0.5 ml IM .ONCE ONE Stop: 06/28/16 12:46 Pneumococcal Polyvalent Vaccine (Pneumovax 23) 0.5 ml IM .ONCE ONE Stop: 06/28/16 12:28 Propofol (Diprivan 20 Ml) Confirm Administered Dose 400 mg .ROUTE .STK-MED ONE Stop: 06/28/16 10:00 Propofol (Diprivan 20 Ml) Confirm Administered Dose 200 mg .ROUTE .STK-MED ONE Stop: 06/28/16 11:57 Propofol (Diprivan 20 Ml) Confirm Administered Dose 200 mg .ROUTE .STK-MED ONE Stop: 06/28/16 11:57 Propofol (Diprivan 20 Ml) Confirm Administered Dose 200 mg .ROUTE .STK-MED ONE Stop: 06/28/16 13:02 Propofol (Diprivan 20 Ml) Confirm Administered Dose 200 mg .ROUTE .STK-MED ONE Stop: 06/28/16 13:02 Propofol (Diprivan 20 Ml) Confirm Administered Dose 200 mg .ROUTE .STK-MED ONE Stop: 06/28/16 13:02 Propofol (Diprivan 20 Ml) Confirm Administered Dose 200 mg .ROUTE .STK-MED ONE Stop: 06/28/16 14:03 Propofol (Diprivan 20 Ml) Confirm Administered Dose 200 mg .ROUTE .STK-MED ONE Stop: 06/28/16 14:03 Propofol (Diprivan 20 Ml) Confirm Administered Dose 200 mg .ROUTE .STK-MED ONE Stop: 06/28/16 14:45 Scopolamine (Transderm-Scop) 1.5 mg TRDERM ONETIME ONE Stop: 06/28/16 11:46 Last Admin: 06/28/16 11:53 Dose: 1.5 mg Senna (Senna) 8.6 mg PO BID PRN PRN Reason: Constipation Sodium Chloride (Saline Flush) 10 ml FLUSH ASDIRECTED PRN PRN Reason: Keep Vein Open Sodium Chloride (Saline Flush) 10 ml FLUSH ASDIRECTED PRN PRN Reason: Keep Vein Open Temazepam (Restoril) 30 mg PO BEDTIME PRN PRN Reason: Insomnia *Q Meaningful Use (DIS) - VTE *Q VTE Criteria *Q: - Stroke *Q Stroke Criteria *Q: - AMI *Q AMI Criteria *Q:
== END 2016-06-29 18:16 | disposition home or self-care (01) | DRG 493 ==
LOC: JD.MS 10:57
PROVIDERS: ADMIT Orthopaedic Surgery; ATTEND Orthopaedic Surgery
PROC: 0QSG04Z Reposition Right Tibia with Internal Fixation Device, Open Approach (ICD-10-PCS; principal; 2016-06-28)
DX: S82.141A Displaced bicondylar fracture of right tibia, initial encounter for closed fracture (principal); Z68.42 Body mass index [BMI] 45.0-49.9, adult; W00.0XXA Fall on same level due to ice and snow, initial encounter; I10 Essential (primary) hypertension; J45.909 Unspecified asthma, uncomplicated; K21.9 Gastro-esophageal reflux disease without esophagitis; E66.01 Morbid (severe) obesity due to excess calories; F17.200 Nicotine dependence, unspecified, uncomplicated; Z79.899 Other long term (current) drug therapy; K59.00 Constipation, unspecified; J30.9 Allergic rhinitis, unspecified
CPT/HCPCS: 01392; 36415; 76000; 76000-26; 80048; 85027; 94640; 94664; 94762; 97161-GP; 97530-GP; A9270-GY; C1713; J0690; J1170; J1200; J1650; J2250; J2270; J2405; J2704; J3010; J3490; J7120

== ENCOUNTER 2018-01-08 08:57 | Day surgery (SDC) | payer OTHER ==
[~2018-01-08 08:57] MED LIST changes: -Albuterol/Ipratropium 3.0-0.5 MG/3 ML Neb Soln NEB PRN; -Lactated Ringers 1,000 ML IV SCH; +Lidocaine 1%/Sod Bicarbonate in NS 8.4% 1 ML Syringe IDERM PRN; -Lidocaine 1%/Sod Bicarbonate in NS 8.4% 1 ML Syringe IV PRN; -Midazolam 1 MG/ML 2 ML SDV ONE; -Morphine PF 10 MG/10 ML SDV ONE; -Propofol 200 MG/20 ML SDV ONE; -Sodium Chloride 0.9% 10 ML ONE; -ceFAZolin 1 GM Vial ONE; -fentaNYL 100 MCG/2 ML SDV ONE
[2018-01-08] MEDS: Lactated Ringers 1,000 ML IV SCH ×2 (09:45→14:45)
[2018-01-08] MEDS ORDERED: Albuterol 0.083% 2.5 MG/3 ML Neb Soln NEB ONE (09:53)
[2018-01-08] MEDS ORDERED: Bupivacaine 0.25% 30 ML SDV ONE (10:31)
--- NOTE | 2018-01-08 10:36 | PCM.PREANE ---
Preanesthetic Assessment - Anesthesia/Transfusion/Family Hx Anesthesia History: Prior Anesthesia Reaction Family History of Anesthesia Reaction: No Transfusion History: No Prior Transfusion(s) Type of Transfusion Reactions: Reports: Unknown - Review of Systems General: No Symptoms Pulmonary: No Symptoms Cardiovascular: Dyspnea on Exertion Gastrointestinal: No Symptoms Neurological: No Symptoms Other: Reports: Anxiety - Physical Assessment NPO Status Date: 01/07/18 NPO Status Time: 23:30 Pulse: 72 O2 Sat by Pulse Oximetry: 99 Respiratory Rate: 16 Blood Pressure: 142/59 Temperature: 36.7 C Vital Signs: Last Vital Signs Temp 37.2 C 01/08/18 09:15 Pulse 87 01/08/18 09:15 Resp 16 01/08/18 09:15 BP 145/98 H 01/08/18 09:15 Pulse Ox 99 01/08/18 09:53 Height: 1.75 m Weight: 149.685 kg ASA Class: 2 Mental Status: Alert & Oriented x3 Dentition: Reports: Normal Dentition, [place](s) Thyro-Mental Finger Breadths: 2 Mouth Opening Finger Breadths: 3 ROM/Head Extension: Full Lungs: Clear to Auscultation, Normal Respiratory Effort, Decreased Breath Sounds Cardiovascular: Regular Rate, Regular Rhythm - Lab Values: Laboratory Last Values Urine HCG, Qual Negative (NEGATIVE) 01/08/18 09:20 MRSA (PCR) Negative 12/23/17 08:40 - Allergies Allergies/Adverse Reactions: Allergies Allergy/AdvReac Type Severity Reaction Status Date / Time No Known Allergies Allergy Verified 01/07/18 14:08 - Blood Blood Available: No Product(s) Available: None - Anesthesia Plan Pre-Op Medication Ordered: None - Acknowledgements Anesthesia Type Planned: General Anesthesia Pt an Appropriate Candidate for the Planned Anesthesia: Yes Alternatives and Risks of Anesthesia Discussed w Pt/Guardian: Yes Pt/Guardian Understands and Agrees with Anesthesia Plan: Yes PreAnesthesia Questionnaire HEENT History: Reports: Allergic Rhinitis, Impaired Vision, Otitis Media Other HEENT History: wears glasses Cardiovascular History: Reports: Hypertension Respiratory History: Reports: Asthma, Other (See Below) Other Respiratory History: Walking pneumonia Gastrointestinal History: Reports: Chronic Constipation, GERD, Hemorrhoids, Other (See Below) Other Gastrointestinal History: elevated LFTs Genitourinary History: Reports: None STUDENT SERVICES COUNSELOR History: Reports: , Spontaneous Musculoskeletal History: Reports: None Neurological History: Reports: Headaches, Chronic, Vertigo Psychiatric History: Reports: Depression, Other (See Below) Other Psychiatric History: sleep disorder Endocrine/Metabolic History: Reports: Diabetes, Type II, Obesity/BMI 30+ Hematologic History: Reports: Anemia Immunologic History: Reports: None Oncologic (Cancer) History: Reports: None Dermatologic History: Reports: Other (See Below) Other Dermatologic History: cold sores - Past Surgical History Head Surgeries/Procedures: Reports: None HEENT Surgical History: Reports: Adenoidectomy, Oral Surgery Cardiovascular Surgical History: Reports: None Respiratory Surgical History: Reports: None GI Surgical History: Reports: EGD Female Surgical History: Reports: D&C Endocrine Surgical History: Reports: None Neurological Surgical History: Reports: None Musculoskeletal Surgical History: Reports: None, Other (See Below) Other Musculoskeletal Surgeries/Procedures:: right knee surgery with hardware Oncologic Surgical History: Reports: None - SUBSTANCE USE Smoking Status *Q: Former Smoker Tobacco Use Within Last Twelve Months: Cigarettes Second Hand Smoke Exposure: No Days Per Week of Alcohol Use: 1 Number of Drinks Per Day: 0 Total Drinks Per Week: 0 Recreational Drug Use History: No - HOME MEDS Home Medications: Home Meds Hydrochlorothiazide 25 mg PO DAILY 06/17/16 [History] Omeprazole 1 tab PO BID 06/17/16 [History] Cyclobenzaprine [Flexeril] 10 mg PO TID PRN #40 tablet 06/21/16 [Rx] Albuterol Sulfate [Proair Hfa] 1 - 2 puff INH Q4H PRN 06/27/16 [History] Fluticasone/Vilanterol [Breo Ellipta 200-25 Mcg INH] 1 puff INH DAILY 06/27/16 [ History] Calcium Carbonate [Calcium] 500 mg PO DAILY 01/07/18 [History] Cetirizine [ZyrTEC] 10 mg PO DAILY 01/07/18 [History] Famciclovir 1,500 mg PO ASDIRECTED PRN 01/07/18 [History] Fluticasone Propionate [Flonase] 1 spray NASBOTH ASDIRECTED PRN 01/07/18 [ History] Potassium Chloride 20 meq PO DAILY 01/07/18 [History] Acetaminophen/HYDROcodone [[place] 325-5 MG] 1 - 2 tab PO Q6H PRN #40 tablet 01/08 [Rx] Aspirin 325 mg PO BID #84 tab 01/08/18 [Rx] - CURRENT (IN HOUSE) MEDS Current Meds: Current Medications Lactated Ringer's (Ringers, Lactated) 1,000 mls @ 125 mls/hr IV ASDIRECTED [facility] Stop: 01/08/18 23:00 Last Admin: 01/08/18 09:45 Dose: 125 mls/hr Lidocaine/Sodium Bicarbonate (Buffered Lidocaine 1% In Ns 8.4%) 0.25 ml IDERM ONETIME PRN PRN Reason: Prior to IV Start Stop: 01/08/18 18:00 Last Admin: 01/08/18 09:44 Dose: 0.25 ml Sodium Chloride (Saline Flush) 10 ml FLUSH ASDIRECTED PRN PRN Reason: Keep Vein Open Stop: 01/08/18 18:00 Discontinued Medications Albuterol (Proventil Neb Soln) 2.5 mg NEB ONETIME ONE Stop: 01/08/18 09:54 Last Admin: 01/08/18 10:20 Dose: 2.5 mg
[2018-01-08] MEDS ORDERED: Midazolam 1 MG/ML 2 ML SDV ONE (10:45)
[2018-01-08] MEDS ORDERED: fentaNYL 250 MCG/5 ML SDV ONE (10:45)
[2018-01-08] MEDS ORDERED: Propofol 200 MG/20 ML SDV ONE (10:45)
[2018-01-08] MEDS ORDERED: Rocuronium 50 MG/5 ML Vial ONE (10:45)
[2018-01-08] MEDS ORDERED: Lidocaine 1% 4 ML ONE (10:45)
[2018-01-08] MEDS ORDERED: Ondansetron 4 MG/2 ML SDV ONE (10:45)
[2018-01-08] MEDS ORDERED: ceFAZolin 1 GM Vial ONE ×2 (10:46)
[2018-01-08] MEDS ORDERED: HYDROmorphone 0.5 MG/0.5 ML Syringe ONE ×2 (11:14)
[2018-01-08] MEDS ORDERED: Dexamethasone 4 MG/ML 5 ML MDV ONE (11:16)
[2018-01-08] MEDS ORDERED: fentaNYL 100 MCG/2 ML SDV ONE (12:25)
[2018-01-08] MEDS ORDERED: HYDROmorphone 0.5 MG/0.5 ML Syringe IVPUSH PRN (12:34)
[2018-01-08] MEDS ORDERED: Racepinephrine 2.25% 0.5 ML Neb Soln NEB ONE (12:35)
--- NOTE | 2018-01-08 12:37 | PCM.POSTAN ---
POST ANESTHESIA ASSESSMENT - MENTAL STATUS Mental Status: Alert, Oriented - VITAL SIGNS Pulse Rate: 110 SaO2: 100 Resp Rate: 16 Blood Pressure: 152/91 Temperature: 36.4 C - RESPIRATORY Respiratory Status: Respiratory Rate WNL, Airway Patent, O2 Saturation Stable, Supplemental Oxygen - CARDIOVASCULAR CV Status: Pulse Rate WNL, Blood Pressure Stable - GASTROINTESTINAL GI Status: No Symptoms - PAIN Pain Score: 4 - POST OP HYDRATION Hydration Status: Adequate & Stable - OBSERVATIONS Free Text/Narrative:: no anesthesia complications noted
[2018-01-08] MEDS ORDERED: Racepinephrine 2.25% 0.5 ML Neb Soln ONE (12:45)
[2018-01-08] MEDS: fentaNYL 100 MCG/2 ML SDV IVPUSH PRN ×2 (12:45→13:00)
--- NOTE | 2018-01-08 13:26 | CR ---
Right knee: Single AP view of the right knee was obtained utilizing C-arm device. Comparison: Prior right knee study of 0 to 06/08/16. Previous orthopedic hardware has been removed. Mild impaction of the medial tibial plateau is seen suggesting old healed fracture. Fluoroscopy time given is 1.3 seconds. Impression: 1. Removal of previous orthopedic hardware. Diagnostic code #2
[2018-01-08] MEDS: Acetaminophen/HYDROcodone 325-5 MG Tab PO PRN ×2 (14:17→17:22)
[2018-01-08] MEDS ORDERED: HYDROmorphone 0.5 MG/0.5 ML Syringe IVPUSH ONE (14:46)
[2018-01-08] MEDS ORDERED: Albuterol 6.7 GM Inhaler INH PRN (16:44)
[2018-01-08] MEDS ORDERED: FAMCICLOVIR 1500 MG PO PRN (16:44)
[2018-01-08] MEDS ORDERED: Omeprazole 20 MG Cap.CR PO SCH (17:00)
[2018-01-08] MEDS: Pantoprazole 40 MG Tab.CR PO SCH (17:15)
[2018-01-08] MEDS ORDERED: Morphine 2 MG/ML Syringe IVPUSH PRN (18:34)
[2018-01-08] MEDS: Cyclobenzaprine 10 MG Tab PO PRN (18:39)
[2018-01-08] MEDS: Acetaminophen/oxyCODONE 325-5 MG Tab PO PRN (20:16)
[2018-01-08] MEDS ORDERED: DULoxetine 20 MG Cap PO SCH (21:00)
[2018-01-08] MEDS ORDERED: Loratadine 10 MG Tab PO SCH (21:00)
[2018-01-08] MEDS ORDERED: Citalopram 20 MG Tab PO ONE (22:37)
[2018-01-09] MEDS: Acetaminophen/oxyCODONE 325-5 MG Tab PO PRN ×2 (02:18→08:17)
[2018-01-09] MEDS ORDERED: Formoterol/Mometasone 200-5 MCG 8.8 GM Inhaler IH SCH (06:00)
[2018-01-09] MEDS: Cyclobenzaprine 10 MG Tab PO PRN (06:10)
[2018-01-09] MEDS: Pantoprazole 40 MG Tab.CR PO SCH (06:11)
[2018-01-09] MEDS ORDERED: Potassium Chloride 20 MEQ Tab.ER PO SCH (07:00)
--- NOTE | 2018-01-09 07:56 | PCM.SURGPN ---
- General Info Date of Service: 01/09/18 POD#: 1 Functional Status: Reports: Pain Controlled, Tolerating Diet, Ambulating, Urinating, Incentive Spirometry, Other (Nursing states the pt walked for 25 minutes this morning.) - Patient Data Vitals - Most Recent: Last Vital Signs Temp 97.9 F 01/09/18 04:43 Pulse 96 01/09/18 04:43 Resp 16 01/08/18 23:37 BP 104/59 L 01/09/18 04:43 Pulse Ox 96 01/09/18 04:43 Weight - Most Recent: 330 lb I&O - Last 24 Hours: Intake & Output 01/08/18 01/09/18 01/09/18 22:59 06:59 14:59 Intake Total 1000 Balance 1000 Lab Results Last 24 Hrs: Laboratory Results - last 24 hr 01/08/18 01/08/18 Range/Units 09:20 10:00 Potassium 3.7 (3.5-5.1) mEq/L Urine HCG, Qual Negative (NEGATIVE) Med Orders - Current: Current Medications Albuterol (Proventil Hfa) 1 - 2 gm INH Q4H PRN PRN Reason: Shortness of Breath Calcium Carbonate/Glycine (Tums) 500 mg PO DAILY [facility] Cyclobenzaprine HCl (Flexeril) 10 mg PO TID PRN PRN Reason: Spasms Last Admin: 01/09/18 06:10 Dose: 10 mg Duloxetine HCl (Cymbalta) 40 mg PO BEDTIME [facility] Last Admin: 01/08/18 20:34 Dose: Not Given Flunisolide (Nasalide Nasal [place]) 0 ml NASBOTH Q12H PRN PRN Reason: as directed Hydrochlorothiazide (Hydrochlorothiazide) 25 mg PO DAILY [facility] Loratadine (Claritin) 10 mg PO BEDTIME [facility] Last Admin: 01/08/18 20:15 Dose: 10 mg Mometasone Furoate/Formoterol Fumar (Dulera 200-5 Mcg) 2 puff IH BIDRT [facility] Last Admin: 01/09/18 05:32 Dose: Not Given Morphine Sulfate (Morphine) 2 mg IVPUSH Q3H PRN PRN Reason: Pain (severe 7-10) Oxycodone/Acetaminophen (Percocet 325-5 Mg) 1 - 2 tab PO Q6H PRN PRN Reason: Pain Last Admin: 01/09/18 02:18 Dose: 2 tab Pantoprazole Sodium (Protonix) 40 mg PO BIDAC [facility] Last Admin: 01/09/18 06:11 Dose: 40 mg Potassium Chloride (Klor-Con M20) 20 meq PO WITHBREAKFAST [facility] Last Admin: 01/09/18 06:10 Dose: 20 meq Discontinued Medications Hydrocodone Bitart/Acetaminophen ([place] 325-5 Mg) 1 - 2 tab PO Q6H PRN PRN Reason: Pain Stop: 01/08/18 20:00 Last Admin: 01/08/18 17:22 Dose: 2 tab Albuterol (Proventil Neb Soln) 2.5 mg NEB ONETIME ONE Stop: 01/08/18 09:54 Last Admin: 01/08/18 10:20 Dose: 2.5 mg Bupivacaine HCl (Marcaine 0.25%) Confirm Administered Dose 30 ml .ROUTE .STK- MED ONE Stop: 01/08/18 10:32 Last Admin: 01/08/18 11:57 Dose: 20 ml Cefazolin Sodium (Ancef) Confirm Administered Dose 2 gm .ROUTE .STK-MED ONE Stop: 01/08/18 10:47 Cefazolin Sodium (Ancef) Confirm Administered Dose 1 gm .ROUTE .STK-MED ONE Stop: 01/08/18 10:47 Citalopram Hydrobromide (Celexa) 40 mg PO ONETIME ONE Stop: 01/08/18 22:38 Last Admin: 01/08/18 23:27 Dose: 40 mg Dexamethasone (Dexamethasone) Confirm Administered Dose 20 mg .ROUTE .STK-MED ONE Stop: 01/08/18 11:17 Fentanyl (Sublimaze) Confirm Administered Dose 250 mcg .ROUTE .STK-MED ONE Stop: 01/08/18 10:46 Fentanyl (Sublimaze) Confirm Administered Dose 100 mcg .ROUTE .STK-MED ONE Stop: 01/08/18 12:26 Fentanyl (Sublimaze) 50 mcg IVPUSH Q5M PRN PRN Reason: Pain Stop: 01/08/18 16:00 Last Admin: 01/08/18 13:00 Dose: 50 mcg Hydromorphone HCl (Dilaudid) Confirm Administered Dose 0.5 mg .ROUTE .STK-MED ONE Stop: 01/08/18 11:15 Hydromorphone HCl (Dilaudid) Confirm Administered Dose 0.5 mg .ROUTE .STK-MED ONE Stop: 01/08/18 11:15 Hydromorphone HCl (Dilaudid) 0.5 mg IVPUSH ONETIME PRN PRN Reason: For pain Stop: 01/08/18 16:00 Last Admin: 01/08/18 12:50 Dose: 0.5 mg Hydromorphone HCl (Dilaudid) 0.5 mg IVPUSH ONETIME ONE Stop: 01/08/18 14:47 Last Admin: 01/08/18 15:10 Dose: 0.5 mg Lactated Ringer's (Ringers, Lactated) 1,000 mls @ 125 mls/hr IV ASDIRECTED RICKY Stop: 01/08/18 23:00 Last Admin: 01/08/18 14:45 Dose: 125 mls/hr Lidocaine HCl (Xylocaine-Mpf 1%) Confirm Administered Dose 4 mls @ as directed .ROUTE .STK-MED ONE Stop: 01/08/18 10:46 Lidocaine/Sodium Bicarbonate (Buffered Lidocaine 1% In Ns 8.4%) 0.25 ml IDERM ONETIME PRN PRN Reason: Prior to IV Start Stop: 01/08/18 18:00 Last Admin: 01/08/18 09:44 Dose: 0.25 ml Midazolam HCl (Versed 1 Mg/Ml) Confirm Administered Dose 2 mg .ROUTE .STK-MED ONE Stop: 01/08/18 10:46 Non-Formulary Medication (Famciclovir) 1,500 mg PO ASDIRECTED PRN PRN Reason: cold sores Ondansetron HCl (Zofran) Confirm Administered Dose 4 mg .ROUTE .STK-MED ONE Stop: 01/08/18 10:46 Propofol (Diprivan 20 Ml) Confirm Administered Dose 200 mg .ROUTE .STK-MED ONE Stop: 01/08/18 10:46 Racepinephrine (S-2 2.25%) 0.5 ml NEB ONETIME ONE Stop: 01/08/18 12:36 Last Admin: 01/08/18 12:50 Dose: 0.5 ml Racepinephrine (S-2 2.25%) Confirm Administered Dose 0.5 ml .ROUTE .STK-MED ONE Stop: 01/08/18 12:46 Last Admin: 01/08/18 12:50 Dose: Not Given Rocuronium [place] (Zemuron) Confirm Administered Dose 50 mg .ROUTE .STK-MED ONE Stop: 01/08/18 10:46 Sodium Chloride (Saline Flush) 10 ml FLUSH ASDIRECTED PRN PRN Reason: Keep Vein Open Stop: 01/08/18 18:00 - Exam Wound/Incisions: Dressing Dry and Intact General: Alert, Cooperative, No Acute Distress Lungs: Normal Respiratory Effort Extremities: Other (NVS intact for BLE. Prabhu's negative.) - Problem List Review Problem List Initiated/Reviewed/Updated: Yes - My Orders Last 24 Hours: Active Orders 24 hr Category Date Time Status Communication Order [RC] ASDIRECTED Care 01/09/18 07:40 Active Cooling Warming Measures [RC] ASDIRECTED Care 01/08/18 12:34 Active Incentive Spirometry [RT Incentive Spirometry] [RC] Care 01/08/18 15:08 Active Q1HWA Notify Provider [RC] ASDIRECTED Care 01/08/18 12:34 Active Pulse Oximetry [RC] ASDIRECTED Care 01/08/18 12:34 Active RT Aerosol Therapy [RC] ASDIRECTED Care 01/08/18 09:53 Active RT Aerosol Therapy [RC] ASDIRECTED Care 01/08/18 12:35 Active Ready for Discharge [RC] PER UNIT ROUTINE Care 01/08/18 07:02 Active Regular Diet [DIET] Diet 01/08/18 Dinner Active Acetaminophen/oxyCODONE [Percocet 325-5 MG] Med 01/08/18 18:33 Active 1 - 2 tab PO Q6H PRN Albuterol [Proventil HFA] Med 01/08/18 16:44 Active 1 - 2 gm INH Q4H PRN Calcium Carbonate [Tums] Med 01/09/18 09:00 Active 500 mg PO DAILY Cyclobenzaprine [Flexeril] Med 01/08/18 16:44 Active 10 mg PO TID PRN DULoxetine [Cymbalta] Med 01/08/18 21:00 Active 40 mg PO BEDTIME Flunisolide [Nasalide Nasal [place]] Med 01/08/18 16:44 Active 0 ml NASBOTH Q12H PRN Loratadine [Claritin] Med 01/08/18 21:00 Active 10 mg PO BEDTIME Mometasone/Formoterol [Dulera 200-5 MCG] Med 01/09/18 06:00 Active 2 puff IH BIDRT Morphine Med 01/08/18 18:34 Active 2 mg IVPUSH Q3H PRN Pantoprazole [ProTONIX] Med 01/08/18 17:00 Active 40 mg PO BIDAC Potassium Chloride [Klor-Con M20] Med 01/09/18 07:00 Active 20 meq PO WITHBREAKFAST hydroCHLOROthiazide Med 01/09/18 09:00 Active 25 mg PO DAILY Resuscitation Status Routine Resus Stat 01/08/18 22:41 Ordered Medication Orders Albuterol (Proventil Hfa) 1 - 2 gm INH Q4H PRN PRN Reason: Shortness of Breath Calcium Carbonate/Glycine (Tums) 500 mg PO DAILY [facility] Cyclobenzaprine HCl (Flexeril) 10 mg PO TID PRN PRN Reason: Spasms Last Admin: 01/09/18 06:10 Dose: 10 mg Admin: 01/08/18 18:39 Dose: 10 mg Duloxetine HCl (Cymbalta) 40 mg PO BEDTIME [facility] Last Admin: 01/08/18 20:34 Dose: Flunisolide (Nasalide Nasal [place]) 0 ml NASBOTH Q12H PRN PRN Reason: as directed Hydrochlorothiazide (Hydrochlorothiazide) 25 mg PO DAILY [facility] Loratadine (Claritin) 10 mg PO BEDTIME [facility] Last Admin: 01/08/18 20:15 Dose: 10 mg Mometasone Furoate/Formoterol Fumar (Dulera 200-5 Mcg) 2 puff IH BIDRT [facility] Last Admin: 01/09/18 05:32 Dose: Not Given Morphine Sulfate (Morphine) 2 mg IVPUSH Q3H PRN PRN Reason: Pain (severe 7-10) Oxycodone/Acetaminophen (Percocet 325-5 Mg) 1 - 2 tab PO Q6H PRN PRN Reason: Pain Last Admin: 01/09/18 02:18 Dose: 2 tab Admin: 01/08/18 20:16 Dose: 2 tab Pantoprazole Sodium (Protonix) 40 mg PO BIDAC [facility] Last Admin: 01/09/18 06:11 Dose: 40 mg Admin: 01/08/18 17:15 Dose: 40 mg Potassium Chloride (Klor-Con M20) 20 meq PO WITHBREAKFAST [facility]ICK[facility] Last Admin: 01/09/18 06:10 Dose: 20 meq - Assessment Assessment (Free Text/Narrative):: POD#1 - hardware removal right tibia; the pt remained in Hospital overnight due to need for O2 and monitoring of O2 saturations, as well as for pain control - Plan Plan (Free Text/Narrative):: 1. Discharge to home today. 2. Pt is to f/u with her PCP. 3. WBAT with assistive device. The pt's case was discussed with Dr. Nathan.
--- NOTE | 2018-01-09 08:04 | PCM.DCSUM1 ---
Discharge Summary - Hospital Course Brief History: Bettie is a 37 yo female who underwent removal of hardware at right tibia with Dr. Nathan on 01-08-2018. The procedure was completed under general anesthesia. The pt's remained in Hospital overnight due to need for O2 per nasal canula and monitoring of O2 saturations. Also, the pt required monitoring of pain. On POD#1, 325mg ASA BID was initiated for VTE prophylaxis. The pt was allowed to WBAT. On POD#1, the pt's oxygen saturations were acceptable on room air and the pt's pain was controlled. She was deemed appropriate to discharge to home with her . - Discharge Data Discharge Date: 01/09/18 Discharge Disposition: Home, Self-Care 01 Condition: Good - Patient Instructions Diet: Usual Diet as Tolerated Activity: Apply Ice, As Tolerated, Elevate Extremity Driving: Do Not Drive Showering/Bathing: May Shower Wound/Incision Care: Keep Operative Site/Wound Site Clean and Dry, Do NOT Change Dressing Notify Provider of: Fever, Increased Pain, Swelling and Redness, Drainage, Nausea and/or Vomiting Other/Special Instructions: Please get up and moving around EVERY HOUR while awake. This helps to prevent blood clots. Have help with mobility as needed. Please take 325mg aspirin twice daily - this also helps to prevent blood clots. The medication is being used for blood clot prevention and not for pain control, so please use the medication twice daily as directed. You may place pressure through your limb. Use crutches or a walker as needed. Do not twist your lower extremity. Please use the pain medication and muscle relaxant as needed. The medication may cause drowsiness and/or constipation. You could use a stool softener like docusate sodium or Colace 100mg twice daily and/or a laxative like Miralax daily for constipation. Contact your primary care provider for further instructions if you are constipated. Try to wean from use of the pain medication as soon as able. Please do not use other medications that may cause drowsiness (other pain medications, anxiety pills, sleeping pills , allergy medications that cause drowsiness) while using the pain medication. Please do not use alcohol while using the pain medication. Please place ice to the knee often. Please elevate the limb to decrease swelling. Keep the dressings and bandages in place until follow-up. Please notify the Clinic if the dressing is saturated or rolls. Increase protein intake in your diet as this helps with healing. If you are a diabetic, please closely monitor your blood sugars and notify your primary care provider of your values. Elevated blood sugars increases the risk of infection. Please call [phone] with questions or concerns. - Discharge Plan *PRESCRIPTION DRUG MONITORING PROGRAM REVIEWED*: No *COPY OF PRESCRIPTION DRUG MONITORING REPORT IN PATIENT CHARITY: No Prescriptions/Med Rec: Acetaminophen/oxyCODONE [Percocet 325-5 MG] 1 - 2 each PO Q6H PRN #40 tab PRN Reason: Pain Aspirin 325 mg PO BID #84 tab Home Medications: Home Meds Hydrochlorothiazide 25 mg PO DAILY 06/17/16 [History] Omeprazole 1 tab PO BID 06/17/16 [History] Cyclobenzaprine [Flexeril] 10 mg PO TID PRN #40 tablet 06/21/16 [Rx] Albuterol Sulfate [Proair Hfa] 1 - 2 puff INH Q4H PRN 06/27/16 [History] Fluticasone/Vilanterol [Breo Ellipta 200-25 Mcg INH] 1 puff INH DAILY 06/27/16 [ History] Calcium Carbonate [Calcium] 500 mg PO DAILY 01/07/18 [History] Cetirizine [ZyrTEC] 10 mg PO DAILY 01/07/18 [History] Famciclovir 1,500 mg PO ASDIRECTED PRN 01/07/18 [History] Fluticasone Propionate [Flonase] 1 spray NASBOTH ASDIRECTED PRN 01/07/18 [ History] Potassium Chloride 20 meq PO DAILY 01/07/18 [History] Acetaminophen/oxyCODONE [Percocet 325-5 MG] 1 - 2 each PO Q6H PRN #40 tab [Rx] Aspirin 325 mg PO BID #84 tab 01/08/18 [Rx] Citalopram Hydrobromide [Celexa] 40 mg PO BEDTIME 01/08/18 [History] Patient Handouts: Hardware Removal, Care After Referrals: Mireya Don PA-C [Phys[facility] [employer]] - 01/20/18 9:45 am (You will have a follow up appointment on January 20 at 9:45 AM to see MARY Gomes) - Patient Data Vitals - Most Recent: Last Vital Signs Temp 97.9 F 01/09/18 07:50 Pulse 95 01/09/18 07:50 Resp 16 01/08/18 23:37 BP 117/73 01/09/18 07:50 Pulse Ox 85 L 01/09/18 07:50 Weight - Most Recent: 330 lb I&O - Last 24 hours: Intake & Output 01/08/18 01/09/18 01/09/18 22:59 06:59 14:59 Intake Total 1000 Balance 1000 Lab Results - Last 24 hrs: Laboratory Results - last 24 hr 01/08/18 01/08/18 Range/Units 09:20 10:00 Potassium 3.7 (3.5-5.1) mEq/L Urine HCG, Qual Negative (NEGATIVE) Med Orders - Current: Current Medications Albuterol (Proventil Hfa) 1 - 2 gm INH Q4H PRN PRN Reason: Shortness of Breath Calcium Carbonate/Glycine (Tums) 500 mg PO DAILY [facility] Cyclobenzaprine HCl (Flexeril) 10 mg PO TID PRN PRN Reason: Spasms Last Admin: 01/09/18 06:10 Dose: 10 mg Duloxetine HCl (Cymbalta) 40 mg PO BEDTIME [facility] Last Admin: 01/08/18 20:34 Dose: Not Given Flunisolide (Nasalide Nasal [place]) 0 ml NASBOTH Q12H PRN PRN Reason: as directed Hydrochlorothiazide (Hydrochlorothiazide) 25 mg PO DAILY [facility] Loratadine (Claritin) 10 mg PO BEDTIME [facility] Last Admin: 01/08/18 20:15 Dose: 10 mg Mometasone Furoate/Formoterol Fumar (Dulera 200-5 Mcg) 2 puff IH BIDRT [facility] Last Admin: 01/09/18 05:32 Dose: Not Given Morphine Sulfate (Morphine) 2 mg IVPUSH Q3H PRN PRN Reason: Pain (severe 7-10) Oxycodone/Acetaminophen (Percocet 325-5 Mg) 1 - 2 tab PO Q6H PRN PRN Reason: Pain Last Admin: 01/09/18 02:18 Dose: 2 tab Pantoprazole Sodium (Protonix) 40 mg PO BIDAC [facility] Last Admin: 01/09/18 06:11 Dose: 40 mg Potassium Chloride (Klor-Con M20) 20 meq PO WITHBREAKFAST [facility]ICK[facility] Last Admin: 01/09/18 06:10 Dose: 20 meq Discontinued Medications Hydrocodone Bitart/Acetaminophen ([place] 325-5 Mg) 1 - 2 tab PO Q6H PRN PRN Reason: Pain Stop: 01/08/18 20:00 Last Admin: 01/08/18 17:22 Dose: 2 tab Albuterol (Proventil Neb Soln) 2.5 mg NEB ONETIME ONE Stop: 01/08/18 09:54 Last Admin: 01/08/18 10:20 Dose: 2.5 mg Bupivacaine HCl (Marcaine 0.25%) Confirm Administered Dose 30 ml .ROUTE .STK- MED ONE Stop: 01/08/18 10:32 Last Admin: 01/08/18 11:57 Dose: 20 ml Cefazolin Sodium (Ancef) Confirm Administered Dose 2 gm .ROUTE .STK-MED ONE Stop: 01/08/18 10:47 Cefazolin Sodium (Ancef) Confirm Administered Dose 1 gm .ROUTE .STK-MED ONE Stop: 01/08/18 10:47 Citalopram Hydrobromide (Celexa) 40 mg PO ONETIME ONE Stop: 01/08/18 22:38 Last Admin: 01/08/18 23:27 Dose: 40 mg Dexamethasone (Dexamethasone) Confirm Administered Dose 20 mg .ROUTE .STK-MED ONE Stop: 01/08/18 11:17 Fentanyl (Sublimaze) Confirm Administered Dose 250 mcg .ROUTE .STK-MED ONE Stop: 01/08/18 10:46 Fentanyl (Sublimaze) Confirm Administered Dose 100 mcg .ROUTE .STK-MED ONE Stop: 01/08/18 12:26 Fentanyl (Sublimaze) 50 mcg IVPUSH Q5M PRN PRN Reason: Pain Stop: 01/08/18 16:00 Last Admin: 01/08/18 13:00 Dose: 50 mcg Hydromorphone HCl (Dilaudid) Confirm Administered Dose 0.5 mg .ROUTE .STK-MED ONE Stop: 01/08/18 11:15 Hydromorphone HCl (Dilaudid) Confirm Administered Dose 0.5 mg .ROUTE .STK-MED ONE Stop: 01/08/18 11:15 Hydromorphone HCl (Dilaudid) 0.5 mg IVPUSH ONETIME PRN PRN Reason: For pain Stop: 01/08/18 16:00 Last Admin: 01/08/18 12:50 Dose: 0.5 mg Hydromorphone HCl (Dilaudid) 0.5 mg IVPUSH ONETIME ONE Stop: 01/08/18 14:47 Last Admin: 01/08/18 15:10 Dose: 0.5 mg Lactated Ringer's (Ringers, Lactated) 1,000 mls @ 125 mls/hr IV ASDIRECTED [facility]ICK[facility] Stop: 01/08/18 23:00 Last Admin: 01/08/18 14:45 Dose: 125 mls/hr Lidocaine HCl (Xylocaine-Mpf 1%) Confirm Administered Dose 4 mls @ as directed .ROUTE .STK-MED ONE Stop: 01/08/18 10:46 Lidocaine/Sodium Bicarbonate (Buffered Lidocaine 1% In Ns 8.4%) 0.25 ml IDERM ONETIME PRN PRN Reason: Prior to IV Start Stop: 01/08/18 18:00 Last Admin: 01/08/18 09:44 Dose: 0.25 ml Midazolam HCl (Versed 1 Mg/Ml) Confirm Administered Dose 2 mg .ROUTE .STK-MED ONE Stop: 01/08/18 10:46 Non-Formulary Medication (Famciclovir) 1,500 mg PO ASDIRECTED PRN PRN Reason: cold sores Ondansetron HCl (Zofran) Confirm Administered Dose 4 mg .ROUTE .STK-MED ONE Stop: 01/08/18 10:46 Propofol (Diprivan 20 Ml) Confirm Administered Dose 200 mg .ROUTE .STK-MED ONE Stop: 01/08/18 10:46 Racepinephrine (S-2 2.25%) 0.5 ml NEB ONETIME ONE Stop: 01/08/18 12:36 Last Admin: 01/08/18 12:50 Dose: 0.5 ml Racepinephrine (S-2 2.25%) Confirm Administered Dose 0.5 ml .ROUTE .STK-MED ONE Stop: 01/08/18 12:46 Last Admin: 01/08/18 12:50 Dose: Not Given Rocuronium [place] (Zemuron) Confirm Administered Dose 50 mg .ROUTE .STK-MED ONE Stop: 01/08/18 10:46 Sodium Chloride (Saline Flush) 10 ml FLUSH ASDIRECTED PRN PRN Reason: Keep Vein Open Stop: 01/08/18 18:00
[2018-01-09] MEDS ORDERED: Calcium Carbonate 500 MG Tab.Chew PO SCH (09:00)
[2018-01-09] MEDS ORDERED: Hydrochlorothiazide 25 MG Tab PO SCH (09:00)
[2018-01-09 11:19] VITALS: BP 128/66
--- NOTE | 2018-01-15 07:09 | PCM.OPNOTE ---
- General Post-Op/Procedure Note Date of Surgery/Procedure: 01/08/18 Operative Procedure(s): right knee deep hardware removal Pre Op Diagnosis: right proximal tibia painful hardware Post-Op Diagnosis: Same Anesthesia Technique: General ET Tube, Local Primary Surgeon: Nadir Nathan Anesthesia Provider: Abram Major Sliver Cutter: Mireya Don EBL in mLs: 5 Complications: None Condition: Good
--- NOTE | 2018-01-19 22:32 | OR ---
DATE OF OPERATION: 01/08/2018 SURGEON: Nadir Nathan MD OPERATION PERFORMED: Right knee deep hardware removal. PREOPERATIVE DIAGNOSIS: Right proximal tibial painful hardware. POSTOPERATIVE DIAGNOSIS: Right proximal tibial painful hardware. ANESTHESIA TECHNIQUE: General endotracheal intubation with local. ANESTHESIA PROVIDER: Abram Major CRNA DOG HANDLER: Mireya Don PA-C ESTIMATED BLOOD LOSS: 5 mL. COMPLICATIONS: None. CONDITION: Stable. DESCRIPTION OF PROCEDURE: The patient was identified in the preoperative holding area. Proper site was marked and identified by the surgeon. The right lower extremity then had a nonsterile tourniquet applied and then was sterilely prepped and draped in the usual sterile fashion. OR time-out was performed. The patient received 2 g IV Ancef. Right lower extremity was then exsanguinated. Tourniquet was insufflated to 250 mmHg. The previous incision was utilized although we did not utilize all the incision, just what will be needed for the hardware removal at this time. This was taken down to the IT band as well as the fascia of the anterior compartment. This was incised, and the plate was identified at this time. All screws were removed using the star nascar driver. There were no screw remnants remaining, and the plate was then taken off. All the rough surfaces were rongeured and curetted, and all the screw holes were curetted at this time. At this time, adequate saline was irrigated through the wound. C-arm fluoroscopy showed all the hardware was removed. 0 Vicryl was used again for the closure of the fascia. 2-0 Vicryl was used subcutaneously, and paul used for the skin. The patient was placed in a sterile soft dressing and sent to the PACU in stable condition. ANESTHESIA: MMODAL /[id number]
== END 2018-01-09 12:11 | disposition home or self-care (01) ==
LOC: JD.SDS 08:57 → JD.MS 17:04 → JD.SDS 01-09 12:11
PROVIDERS: ATTEND Orthopaedic Surgery
DX: T84.84XA Pain due to internal orthopedic prosthetic devices, implants and grafts, initial encounter (principal); D64.9 Anemia, unspecified; K21.9 Gastro-esophageal reflux disease without esophagitis; I10 Essential (primary) hypertension; J30.9 Allergic rhinitis, unspecified; J45.30 Mild persistent asthma, uncomplicated; E11.9 Type 2 diabetes mellitus without complications; E87.8 Other disorders of electrolyte and fluid balance, not elsewhere classified; E88.81 Metabolic syndrome and other insulin resistance; E66.9 Obesity, unspecified; Z68.42 Body mass index [BMI] 45.0-49.9, adult; F33.1 Major depressive disorder, recurrent, moderate; Z79.82 Long term (current) use of aspirin; Z79.899 Other long term (current) drug therapy; Z87.891 Personal history of nicotine dependence
CPT/HCPCS: 20680; 36415; 76000; 81025; 84132; 87641; 94640; A9270; J0690; J1100; J1170; J2250; J2405; J2704; J3010; J3490; J7120; 01400; J2001

== ENCOUNTER 2018-01-14 17:52 | Emergency (ER) | payer OTHER ==
[2018-01-14 18:11] VITALS: BP 138/94
[2018-01-14] MEDS ORDERED: Sodium Chloride 0.9% 10 ML Syringe FLUSH PRN (18:23)
[2018-01-14] MEDS ORDERED: Sodium Chloride 0.9% 1,000 ML IV STA (18:23)
--- NOTE | 2018-01-14 19:44 | EDM.PDOC ---
ED HPI GENERAL MEDICAL PROBLEM - General Chief Complaint: Cardiovascular Problem Stated Complaint: HBP,VOMITING,FEVER POST SURGERY Time Seen by Provider: 01/14/18 18:04 Source of Information: Reports: Patient History Limitations: Reports: No Limitations - History of Present Illness INITIAL COMMENTS - FREE TEXT/NARRATIVE: The patient had surgery last by Dr Nathan. She had hardware removed from her right lower leg. She has been doing good. Today she was at work and she got lightheaded, nauseated and vomited once. She also had a fever today. She took 800mg of motrin and that was better. Her blood pressure was elevated. She had a nurse at work take it. He heart rate was fast. She has no pain such as a headache, chest pain, abdominal pain or leg pain. She has no history of DVTs or PE. She has been coughing for the past few days mostly at night. She has no dysuria. Onset: Sudden Duration: Hour(s): Severity: Moderate Improves with: Reports: None Worsens with: Reports: None Associated Symptoms: Reports: Cough, Fever/Chills, Nausea/Vomiting. Denies: Chest Pain, Headaches, Shortness of Breath - Related Data Allergies Allergy/AdvReac Type Severity Reaction Status Date / Time No Known Allergies Allergy Verified 01/14/18 18:02 Home Meds: Home Meds Hydrochlorothiazide 25 mg PO DAILY 06/17/16 [History] Omeprazole 1 tab PO BID 06/17/16 [History] Cyclobenzaprine [Flexeril] 10 mg PO TID PRN #40 tablet 06/21/16 [Rx] Albuterol Sulfate [Proair Hfa] 1 - 2 puff INH Q4H PRN 06/27/16 [History] Fluticasone/Vilanterol [Breo Ellipta 200-25 Mcg INH] 1 puff INH DAILY 06/27/16 [ History] Calcium Carbonate [Calcium] 500 mg PO DAILY 01/07/18 [History] Cetirizine [ZyrTEC] 10 mg PO DAILY 01/07/18 [History] Famciclovir 1,500 mg PO ASDIRECTED PRN 01/07/18 [History] Fluticasone Propionate [Flonase] 1 spray NASBOTH ASDIRECTED PRN 01/07/18 [ History] Potassium Chloride 20 meq PO DAILY 01/07/18 [History] Acetaminophen/oxyCODONE [Percocet 325-5 MG] 1 - 2 each PO Q6H PRN #40 tab [Rx] Aspirin 325 mg PO BID #84 tab 01/08/18 [Rx] Citalopram Hydrobromide [Celexa] 40 mg PO BEDTIME 01/08/18 [History] Past Medical History HEENT History: Reports: Allergic Rhinitis, Impaired Vision, Otitis Media Other HEENT History: wears glasses Cardiovascular History: Reports: Hypertension Respiratory History: Reports: Asthma, Other (See Below) Other Respiratory History: Walking pneumonia Gastrointestinal History: Reports: Chronic Constipation, GERD, Hemorrhoids, Other (See Below) Other Gastrointestinal History: elevated LFTs Genitourinary History: Reports: None [employer]RI[employer]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: , 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 Musculoskeletal History: Reports: None Neurological History: Reports: Headaches, Chronic, Vertigo Psychiatric History: Reports: Depression, Other (See Below) Other Psychiatric History: sleep disorder Endocrine/Metabolic History: Reports: Diabetes, Type II, Obesity/BMI 30+ Hematologic History: Reports: Anemia Immunologic History: Reports: None Oncologic (Cancer) History: Reports: None Dermatologic History: Reports: Other (See Below) Other Dermatologic History: cold sores - Past Surgical History Head Surgeries/Procedures: Reports: None HEENT Surgical History: Reports: Adenoidectomy, Oral Surgery Cardiovascular Surgical History: Reports: None Respiratory Surgical History: Reports: None GI Surgical History: Reports: EGD Female Surgical History: Reports: D&C Endocrine Surgical History: Reports: None Neurological Surgical History: Reports: None Musculoskeletal Surgical History: Reports: None, Other (See Below) Other Musculoskeletal Surgeries/Procedures:: right knee surgery with hardware Oncologic Surgical History: Reports: None Social & Family History - Family History Family Medical History: Noncontributory Cardiac: Reports: CAD, VA Neurological: Reports: CVA - Tobacco Use Smoking Status *Q: Current Every Day Smoker Years of Tobacco use: 15 Packs/Tins Daily: 1 - Caffeine Use Caffeine Use: Reports: Coffee, Tea - Recreational Drug Use Recreational Drug Use: Yes Drug Use in Last 12 Months: No Recreational Drug Type: Reports: Cocaine, Marijuana/Hashish ED ROS GENERAL - Review of Systems Review Of Systems: See Below Constitutional: Reports: Fever, Chills HEENT: Reports: No Symptoms Respiratory: Reports: Cough. Denies: Shortness of Breath Cardiovascular: Reports: No Symptoms Endocrine: Reports: No Symptoms GI/Abdominal: Reports: No Symptoms : Reports: No Symptoms Musculoskeletal: Reports: No Symptoms ED EXAM, GENERAL - Physical Exam Exam: See Below Exam Limited By: No Limitations General Appearance: Alert, No Apparent Distress Ears: Normal External Exam Nose: Normal Inspection Head: Atraumatic, Normocephalic Neck: Normal Inspection Respiratory/Chest: No Respiratory Distress, Lungs Clear, Normal Breath Sounds Cardiovascular: Regular Rate, Rhythm, No Edema, No Murmur GI/Abdominal: Soft, Non-Tender, No Organomegaly, No Mass Back Exam: Normal Inspection Extremities: Other (Surgical wound to the right anterior lower leg with multiple paul. No erythema, edema, pain or drainage.) Course - Vital Signs Last Recorded V/S: Last Vital Signs Temp 97.4 F 01/14/18 18:03 Pulse 110 H 01/14/18 18:03 Resp 18 01/14/18 18:03 BP 138/94 H 01/14/18 18:03 Pulse Ox 96 01/14/18 18:03 - Orders/Labs/Meds Orders: Active Orders 24 hr Category Date Time Status EKG Documentation Completion [RC] ASDIRECTED Care 01/14/18 19:47 Active Peripheral IV Care [RC] . DIRECTED Care 01/14/18 18:23 Active Chest 2V [CR] Stat Exams 01/14/18 18:23 Taken CULTURE BLOOD [BC] Stat Lab 01/14/18 18:53 Received CULTURE BLOOD [BC] Stat Lab 01/14/18 19:00 Received Sodium Chloride 0.9% [Normal Saline] 1,000 ml Med 01/14/18 20:50 Active IV ONETIME Sodium Chloride 0.9% [Saline Flush] Med 01/14/18 18:23 Active 10 ml FLUSH ASDIRECTED PRN Blood Culture x2 Reflex Set [OM.PC] Stat Oth 01/14/18 18:23 Ordered Peripheral IV Insertion Adult [OM.PC] Stat Oth 01/14/18 18:23 Ordered EKG 12 Lead [EK] Stat Ther 01/14/18 19:47 Ordered Medication Orders Sodium Chloride (Normal Saline) 1,000 mls @ 1,000 mls/hr IV ONETIME ONE Stop: 01/14/18 21:49 Sodium Chloride (Saline Flush) 10 ml FLUSH ASDIRECTED PRN PRN Reason: Keep Vein Open Last Admin: 01/14/18 19:21 Dose: 10 ml Labs: Laboratory Tests 01/14/18 01/14/18 01/14/18 Range/Units 18:53 18:53 19:00 WBC 15.27 H (3.98-10.04) K/mm3 RBC 5.49 H (3.98-5.22) M/mm3 Hgb 12.3 (11.2-15.7) gm/L Hct 39.5 (34.1-44.9) % MCV 71.9 L (79.4-94.8) fl MCH 22.4 L (25.6-32.2) pg MCHC 31.1 L (32.2-35.5) g/dl RDW Std Deviation 48.0 H (36.4-46.3) fL Plt Count 497 H (182-369) K/mm3 MPV 9.5 (9.4-12.3) fl Neut % (Auto) 68.8 (34.0-71.1) % Lymph % (Auto) 22.6 (19.3-51.7) % Marshall % (Auto) 6.4 (4.7-12.5) % Eos % (Auto) 1.4 (0.7-5.8) Baso % (Auto) 0.5 (0.1-1.2) % Neut # (Auto) 10.51 H (1.56-6.13) K/mm3 Lymph # (Auto) 3.45 (1.18-3.74) K/mm3 Marshall # (Auto) 0.98 H (0.24-0.36) K/mm3 Eos # (Auto) 0.22 (0.04-0.36) K/mm3 Baso # (Auto) 0.07 (0.01-0.08) K/mm3 Manual Slide Review Abnormal smear Sodium 137 (136-145) mEq/L Potassium 3.3 L (3.5-5.1) mEq/L Chloride 100 (98-107) mEq/L Carbon Dioxide 27 (21-32) mEq/L Anion Gap 13.3 (5-15) BUN 15 (7-18) mg/dL Creatinine 0.9 (0.55-1.02) mg/dL Est Cr Clr Drug Dosing 91.18 mL/min Estimated GFR (MDRD) > 60 (>60) mL/min BUN/Creatinine Ratio 16.7 (14-18) Glucose 138 H (74-106) mg/dL Calcium 9.1 (8.5-10.1) mg/dL Total Bilirubin 0.5 (0.2-1.0) mg/dL AST 16 (15-37) U/L ALT 21 (14-59) U/L Alkaline Phosphatase 91 (46-116) U/L C-Reactive Protein 6.3 H* (<1.0) mg/dL Total Protein 7.9 (6.4-8.2) g/dl Albumin 3.3 L (3.4-5.0) g/dl Globulin 4.6 gm/dL Albumin/Globulin Ratio 0.7 L (1-2) Urine Color Yellow (Yellow) Urine Appearance Clear (Clear) Urine pH 6.5 (5.0-8.0) Ur Specific Edmond 1.025 (1.005-1.030) Urine Protein Negative (Negative) Urine Glucose (UA) Negative (Negative) Urine Ketones Negative (Negative) Urine Occult Blood Trace-lysed H (Negative) Urine Nitrite Negative (Negative) Urine Bilirubin Negative (Negative) Urine Urobilinogen 0.2 (0.2-1.0) Ur Leukocyte Esterase Negative (Negative) Urine RBC 0-5 (0-5) /hpf Urine WBC 0-5 (0-5) /hpf Ur Epithelial Cells 0-5 (0-5) /hpf Urine Bacteria Rare (FEW) /hpf Urine Mucus Not seen (FEW) /hpf Meds: Medications Generic Name Dose Route Start Last Admin Trade Name Freq PRN Reason Stop Dose Admin Sodium Chloride 1,000 mls @ 1,000 mls/hr 01/14/18 20:50 Normal Saline IV 01/14/18 21:49 ONETIME ONE Sodium Chloride 10 ml 01/14/18 18:23 01/14/18 19:21 Saline Flush FLUSH 10 ml ASDIRECTED PRN Administration Keep Vein Open Discontinued Medications Generic Name Dose Route Start Last Admin Trade Name Freq PRN Reason Stop Dose Admin Sodium Chloride 1,000 mls @ 1,000 mls/hr 01/14/18 18:23 09/12/18 19:20 Normal Saline IV 01/14/18 19:22 1,000 mls/hr .BOLUS STA Administration Iopamidol 100 ml 01/14/18 19:59 01/14/18 20:18 Isovue-370 (76%) IVPUSH 01/14/18 20:00 100 ml ONETIME ONE Administration - Re-Assessments/Exams Free Text/Narrative Re-Assessment/Exam: 01/14/18 19:45 I ordered an IV NS 1L bolus, labs, UA, CXR and an US of her right leg. The CXR shows no infiltrates and her US shows no DVT. 01/14/18 19:46 Her WBC was elevated at 15.27. Her Hgb was 12.3. Her platelets were elevated at 497. Her K was low at 3.3. Her glucose was elevated at 136. Her CRP was elevated at 6.3. 01/14/18 20:43 Looking back at prior visits her WBC has been elevated. I am not sure why is elevated. I do have blood cultures ordered. Her EKG shows a NSR with no acute changes. She is still tachycardic at times. I have ordered a CT angio of her chest. 01/14/18 21:[address] of her chest showed artifact from patient body habitus. No pulmonary embolism is seen within the main or segmental branches. Small pulmonary emboli could be missed. There is no sign of pneumonia either. She was a little lightheaded again when getting up to use the restroom. I was going to give her another liter of fluid but she did not want that done. She will drink at home. I am not sure why her WBC is elevated at this time. I have blood cultures ordered. 01/14/18 21:08 It will take awhile for those to come back. She is seeing Abrahan tomorrow. I will also look for the cultures in a few days. Departure - Departure Time of Disposition: 21:10 Disposition: Home, Self-Care 01 Condition: Good Clinical Impression: Lightheaded, Dehydration Leukocytosis Qualifiers: Leukocytosis type: unspecified Qualified Code(s): D72.829 - Elevated white blood cell count, unspecified Nausea and vomiting Qualifiers: Vomiting type: unspecified Vomiting Intractability: non-intractable Qualified Code(s): R11.2 - Nausea with vomiting, unspecified Referrals: Abrahan Garcia PA [Primary Care Provider] - 1 Day Forms: ED Department Discharge Additional Instructions: Go home and drink 2 glasses of water. Follow up with Abrahan tomorrow. Please return if you are worse. - My Orders Last 24 Hours: My Active Orders 01/14/18 18:23 Peripheral IV Care [RC] . DIRECTED Chest 2V [CR] Stat Sodium Chloride 0.9% [Saline Flush] 10 ml FLUSH ASDIRECTED PRN Blood Culture x2 Reflex Set [OM.PC] Stat Peripheral IV Insertion Adult [OM.PC] Stat 01/14/18 18:53 CULTURE BLOOD [BC] Stat 01/14/18 19:00 CULTURE BLOOD [BC] Stat 01/14/18 19:47 EKG Documentation Completion [RC] ASDIRECTED EKG 12 Lead [EK] Stat 01/14/18 20:50 Sodium Chloride 0.9% [Normal Saline] 1,000 ml IV ONETIME - Assessment/Plan Last 24 Hours: My Active Orders 01/14/18 18:23 Peripheral IV Care [RC] . DIRECTED Chest 2V [CR] Stat Sodium Chloride 0.9% [Saline Flush] 10 ml FLUSH ASDIRECTED PRN Blood Culture x2 Reflex Set [OM.PC] Stat Peripheral IV Insertion Adult [OM.PC] Stat 01/14/18 18:53 CULTURE BLOOD [BC] Stat 01/14/18 19:00 CULTURE BLOOD [BC] Stat 01/14/18 19:47 EKG Documentation Completion [RC] ASDIRECTED EKG 12 Lead [EK] Stat 01/14/18 20:50 Sodium Chloride 0.9% [Normal Saline] 1,000 ml IV ONETIME
--- NOTE | 2018-01-14 19:57 | US ---
Right lower extremity deep venous ultrasound: Duplex and color flow imaging was obtained of the right common femoral, proximal greater saphenous, superficial femoral, popliteal, posterior tibial and peroneal veins. Left common femoral vein was also evaluated. Findings: Normal phasic flow, augmentation and compression is seen. Impression: 1. No evidence of deep venous thrombosis within the right lower extremity or within the left common femoral vein. Diagnostic code #1
[2018-01-14] MEDS ORDERED: Iopamidol 755 Mg/ML 100 ML Bottle IVPUSH ONE (19:59)
[2018-01-14] MEDS ORDERED: Sodium Chloride 0.9% 1,000 ML IV ONE (20:50)
--- NOTE | 2018-01-14 20:57 | CT ---
CT chest Technique: Multiple axial sections through the chest were obtained. Intravenous contrast was utilized. Study has been performed as a pulmonary angiogram protocol. Findings: Fair amount of artifact is seen secondary to the patient's body habitus. This could obscure smaller pulmonary emboli but no larger filling defects are seen within the main or segmental branches to indicate definite pulmonary embolism. Mediastinum and hilar regions show no adenopathy or mass. Small portion visualized upper abdominal structures appear within normal limits other than a moderate sized hiatal hernia. Lungs are clear without acute parenchymal densities. No pleural effusions or pneumothorax is seen. Bone window settings shows nothing acute. Impression: 1. Artifact from patient body habitus. No pulmonary embolism is seen within the main or segmental branches. Smaller pulmonary emboli could be missed. 2. Other incidental findings as noted above. Diagnostic code #2
--- NOTE | 2018-01-15 06:58 | CR ---
Chest: Two views of the chest were obtained. Comparison: Prior chest x-ray of 12/31/17. Heart size and mediastinum are within normal limits. Lungs are clear. Bony structures are unremarkable. Impression: 1. Nothing acute is seen on two-view chest x-ray. Diagnostic code #1
== END 2018-01-14 21:18 | disposition home or self-care (01) ==
LOC: JD.ED 17:52
DX: E86.0 Dehydration (principal); R42 Dizziness and giddiness; D72.829 Elevated white blood cell count, unspecified; R11.2 Nausea with vomiting, unspecified; I10 Essential (primary) hypertension; E11.9 Type 2 diabetes mellitus without complications; E66.9 Obesity, unspecified; F17.210 Nicotine dependence, cigarettes, uncomplicated; Z79.899 Other long term (current) drug therapy
CPT/HCPCS: 36415; 71046; 71275; 80053; 81001; 85025; 86140; 87040; 93005; 93971; 96360; 99285; J7040; J7050; Q9967